=== PATIENT | female | born 1940 | race Caucasian/White ===

== ENCOUNTER 2017-04-26 11:14 | Outpatient (CLI) | payer MEDICARE ==
--- NOTE | 2017-04-26 14:12 | Ultrasound Report ---
PELVIC ULTRASOUND: 04/26/2017 CLINICAL INDICATION: Postmenopausal bleeding. COMPARISON: 01/08/2015 TECHNIQUE: Transabdominal pelvic ultrasound performed for global evaluation. Transvaginal pelvic ul trasound performed for detailed evaluation. Real-time scanning performed and static images obtained. FINDINGS: The uterus is anteverted, measuring 10.6 x 7.1 x 4.4 cm. The endometrium is thickened, me asuring 17 mm. There is a possible lower uterine segment/upper cervical polyp, measuring 1.3 x 0.8 x 0.7 cm. Multiple leiomyomas are present, with a left intramural measuring 5.0 x 3.6 x 3.5 cm, and a fundal measuring 3.2 x 3.1 x 3.0 cm. Neither ovary was confidently identified on transabdominal or transvaginal scanning. No free fluid is present. IMPRESSION: THICKENED ENDOMETRIUM. POSSIBLE SMALL POLYP. MULTIPLE LEIOMYOMAS. JOB #: [id number] EXT JOB #:
== END 2017-04-26 11:15 | disposition home or self-care (01) ==
LOC: DI 11:14
PROVIDERS: ATTEND Obstetrics & Gynecology
DX: D25.9 Leiomyoma of uterus, unspecified (principal); R93.8 Abnormal findings on diagnostic imaging of other specified body structures
CPT/HCPCS: 76830; 76856

== ENCOUNTER 2017-06-29 14:01 | Outpatient (CLI) | payer MEDICARE | END 2017-06-29 14:02 | disposition critical access hospital (66) | LOC: EMS 14:01 | PROVIDERS: ATTEND Surgery | DX: R09.89 Other specified symptoms and signs involving the circulatory and respiratory systems (principal) | CPT/HCPCS: A0425; A0427 ==

== ENCOUNTER 2017-06-29 14:33 | Inpatient (IN) | payer MEDICARE ==
[2017-06-29] MEDS ORDERED: diltiaZEM INJ 5 MG/ML VIAL IVP STA (14:58)
--- NOTE | 2017-06-29 15:02 | ED Physician Documentation ---
History of Present Illness - Stated complaint Stated Complaint: CP - Chief complaint Chief Complaint: Cardiac - History obtained from History obtained from: Patient, EMS - History of Present Illness Pain level max: 4 Pain level now: 4 Improved by: nothing Worsened by: nothing - Additonal information Additional information: Patient is a 77-year-old female who had 2-3 hours of chest pain yesterday, felt her heart racing and radiating up to the left jaw. This spontaneously resolved , but symptoms recurred today approximately 2 hours ago. Again states feels her heart beating very fast and has substernal chest tightness radiating to the left jaw. No history of cardiac disease in the past. No stents. No bypass. States that she had been told once she had a "arrhythmia", but that was when she was very young. No history of atrial fibrillation or atrial flutter that she knows of. States she took aspirin prior to arrival. Did not receive any medications with EMS. Review of Systems Ten Systems: 10 systems reviewed and negative Constitutional: denies: Fever, Chills Ears: denies: Ear pain Nose: denies: Rhinorrhea / runny nose, Congestion Throat: denies: Sore throat Respiratory: denies: Cough, Hemoptysis, Wheezing GI: denies: Abdominal Pain, Nausea, Vomiting, Diarrhea Skin: denies: Rash Musculoskeletal: denies: Neck pain, Back pain Neurologic: denies: Focal weakness, Numbness, Confused, Altered mental status, Headache PD PAST MEDICAL HISTORY - Past Medical History Cardiovascular: Hypertension, High cholesterol Respiratory: Other Endocrine/Autoimmune: None GI: None : None HEENT: None Psych: None Musculoskeletal: Osteoarthritis Derm: Rosacea - Past Surgical History Ortho: Knee replacement HEENT: Tonsil/Adenoidectomy - Present Medications Home Medications: Ambulatory Orders Medication Instructions Recorded Confirmed Amlodipine Besylate 10 mg PO DAILY 07/12/15 06/29/17 Aspirin [Aspir 81] 81 mg PO DAILY 07/12/15 06/29/17 Multivitamin [Multivitamins] 1 each PO DAILY 07/12/15 06/29/17 Pravastatin Sodium 20 mg PO DAILY 07/12/15 06/29/17 - Allergies Allergies/Adverse Reactions: Allergies Allergy/AdvReac Type Severity Reaction Status Date / Time No Known Drug Allergies Allergy Verified 06/29/17 14:45 - Social History Does the pt smoke?: No Smoking Status: Never smoker PD ED PE NORMAL - Vitals Vital signs reviewed: Yes - General General: Alert and oriented X 3, No acute distress, Well developed/nourished - HEENT HEENT: PERRL, Moist mucous membranes - Neck Neck: Supple, no meningeal sign - Cardiac Cardiac: Strong equal pulses, Other (Tachycardic) - Respiratory Respiratory: No respiratory distress, Clear bilaterally - Abdomen Abdomen: Soft, Non tender, Non distended - Derm Derm: Warm and dry - Extremities Extremities: No edema, No calf tenderness / cord - Neuro Neuro: Alert and oriented X 3 - Psych Psych: Normal mood, Normal affect Results - Vitals Vitals: Vital Signs - 24 hr 06/29/17 14:44 Temperature 99.1 C H Heart Rate 141 H Respiratory 18 Rate Blood Pressure 148/87 H O2 Saturation 95 Oxygen O2 Source Room air - EKG (time done) 1504 Rate: Rate (enter#) (139) Rhythm: Sinus tachycardia (vs ectopic) Bim: LAD QRS: Normal Ischemia: Other (rate related ST changes) Compare to prior EKG: Old EKG unavailable - Labs Labs: Laboratory Tests 06/29/17 06/29/17 06/29/17 15:00 15:00 15:00 WBC 8.2 RBC 5.58 H Hgb 15.7 Hct 46.4 MCV 83.0 MCH 28.2 MCHC 33.9 RDW 14.7 Plt Count 244 MPV 7.8 L Neut # 4.7 Lymph # 2.4 Wilkinson # 0.5 Eos # 0.5 Baso # 0.1 Absolute Nucleated RBC 0.00 Nucleated RBC % 0.0 Sodium 139 Potassium 2.8 L Chloride 100 L Carbon Dioxide 27 Anion Gap 12.0 BUN 13 Creatinine 0.6 Estimated GFR (MDRD) 97 Glucose 180 H Calcium 9.6 Phosphorus Magnesium Total Bilirubin 0.5 AST 36 ALT 27 Alkaline Phosphatase 31 L Troponin I < 0.04 Total Protein 8.1 Albumin 4.1 Globulin 4.0 Albumin/Globulin Ratio 1.0 Lipase 32 TSH 06/29/17 06/29/17 15:00 15:00 WBC RBC Hgb Hct MCV MCH MCHC RDW Plt Count MPV Neut # Lymph # Wilkinson # Eos # Baso # Absolute Nucleated RBC Nucleated RBC % Sodium Potassium Chloride Carbon Dioxide Anion Gap BUN Creatinine Estimated GFR (MDRD) Glucose Calcium Phosphorus 2.7 Magnesium 2.0 Total Bilirubin AST ALT Alkaline Phosphatase Troponin I Total Protein Albumin Globulin Albumin/Globulin Ratio Lipase TSH 2.67 - Rads (name of study) Chest x-ray Radiology: Prelim report reviewed, EMP read contemporaneously, See rad report ( No acute intrathoracic plain film abnormality. ) PD MEDICAL DECISION MAKING - ED course Complexity details: reviewed results, re-evaluated patient, considered differential, d/w patient, d/w [facility] ebs consultant ED course: Patient is a 77-year-old female who presents to the emergency department for appears to be new onset atrial fibrillation with rapid ventricular response. Initially difficult to tell if it was sinus tach versus atrial flutter versus atrial fibrillation her EKG as it was very regular, given diltiazem, rate slowed and was able to be seen that this is clearly atrial fibrillation. Placed on a diltiazem drip for continued rapid ventricular response. Feels much better and chest pain resolved with rate control. We will have her admitted with the hospitalist for further evaluation and care. As I do not know her baseline status if she is sinus or atrial fibrillation without rapid ventricular response, did not feel comfortable cardioverting her electrically or pharmacologically at this time. Discussed with Dr. Da Silva, who accepts. This document was made in part using voice recognition software. While efforts are made to proofread this document, sound alike and grammatical errors may occur. Departure - Departure Disposition: 66 [facility] DC/Xfer Clinical Impression: Atrial fibrillation with rapid ventricular response Condition: Stable Discharge Date/Time: 06/29/17 17:23
[2017-06-29 15:06] LABS: BASOPHILS # (AUTO) 0.1 10^3/uL (0.0-0.1); BASOPHILS % (AUTO) 1.1 %; EOSINOPHILS # (AUTO) 0.5 10^3/uL (0.0-0.7); EOSINOPHILS % (AUTO) 5.7 %; HCT - HEMATOCRIT 46.4 % (37.0-47.0); HGB - HEMOGLOBIN 15.7 g/dL (12.0-16.0); LYMPHOCYTES # (AUTO) 2.4 10^3/uL (1.5-3.5); LYMPHOCYTES % (AUTO) 29.6 %; MEAN CORPUSCULAR HEMOGLOBIN 28.2 pg (27.0-31.0); MEAN CORPUSCULAR HGB CONC 33.9 g/dL (32.0-36.0); MEAN PLATELET VOLUME 7.8 fL (7.9-10.8); MONOCYTES # (AUTO) 0.5 10^3/uL (0.0-1.0); MONOCYTES % (AUTO) 6.2 %; NEUTROPHILS # (AUTO) 4.7 10^3/uL (1.5-6.6); NEUTROPHILS % (AUTO) 57.4 %; RED BLOOD COUNT 5.58 10^6/uL (4.20-5.40); RED CELL DISTRIBUTION WIDTH 14.7 % (12.0-15.0); UNCORRECTED WHITE BLOOD COUNT 8.2 x10^3/uL; WHITE BLOOD COUNT 8.2 x10^3/uL (4.8-10.8)
[2017-06-29] MEDS ORDERED: diltiaZEM INJ 5 MG/ML VIAL ONE (15:10)
[2017-06-29 15:27] LABS: BILIRUBIN,TOTAL 0.5 mg/dL (0.2-1.0); CALCIUM 9.6 mg/dL (8.5-10.3); CREATININE 0.6 mg/dL (0.4-1.0); POTASSIUM 2.8 mmol/L (3.5-5.0); TOTAL PROTEIN 8.1 g/dL (6.7-8.2)
--- NOTE | 2017-06-29 15:29 | XRAY Preliminary Report ---
Exam: XR Chest 1 View IMPRESSION: No acute intrathoracic plain film abnormality. [facility] SITE ID: [id number]
--- NOTE | 2017-06-29 15:32 | XRAY Report ---
EXAM: CHEST RADIOGRAPHY EXAM DATE: 06/29/2017 03:16 PM. CLINICAL HISTORY: Chest pain. COMPARISON: 11/18/2009. TECHNIQUE: 1 view. FINDINGS: Lungs/Pleura: No focal opacities evident. No pleural effusion. No pneumothorax. Mediastinum: Mild thoracic aortic tortuosity. Normal heart size. Other: None. IMPRESSION: No acute intrathoracic plain film abnormality. [facility] Referring Provider Line: [phone] SITE ID: [id number]
[2017-06-29] MEDS ORDERED: POTASSIUM BICARB 25 MEQ TABLET PO STA (15:45)
[2017-06-29 16:01] LABS: PHOSPHORUS 2.7 mg/dL (2.5-4.6)
[2017-06-29] MEDS: diltiaZEM INJ 125 MG in DEXTROSE 5% 100 ML IV STA ×2 (16:04→18:58)
[2017-06-29] MEDS ORDERED: ONDANSETRON 4 MG/2 ML VIAL IVP PRN (16:44)
[2017-06-29] MEDS ORDERED: SODIUM CHLORIDE FLUSH 0.9% 10 ML SYRINGE IVP PRN (16:44)
[2017-06-29] MEDS ORDERED: PROCHLORPERAZINE 10 MG/2 ML VIAL IVP PRN (16:44)
[2017-06-29] MEDS ORDERED: ZOLPIDEM 5 MG TABLET PO PRN (16:44)
[2017-06-29] MEDS ORDERED: ACETAMINOPHEN 325 MG TABLET PO PRN (16:44)
[2017-06-29] MEDS ORDERED: POTASSIUM BICARB 25 MEQ TABLET PO ONE (16:47)
[2017-06-29] MEDS ORDERED: diltiaZEM INJ 125 MG in DEXTROSE 5% 100 ML IV SCH (17:00)
--- NOTE | 2017-06-29 17:19 | HISTORY & PHYSICAL EXAMINATION ---
Chief Complaint - Chief Complaint Chief Complaint: Palpitations History of Present Illness - Admitted From Admitted From:: Emergency department - History Obtained From Records Reviewed: Yes History obtained from: Patient Exam Limitations: None - History of Present Illness HPI Comment/Other: Patient is a 77-year-old female with a past medical history significant for obesity, hyperlipidemia, hypertension and osteoarthritis status post right knee replacement who presented to the emergency department with a chief complaint of palpitations. The patient states that she was in her normal state of health until yesterday afternoon when she felt as though her heart was racing and pounding against her chest. She states at that time she also felt some discomfort in her right jaw. She states that she tried to relax and take deep breaths and not do anything for the next several hours and she states eventually , gradually the symptoms resolved. The patient states that prior to this she has never had symptoms like this before. The patient states that today at 12: 30 PM the same symptoms returned while she was standing in her home. She states again she felt palpitations in her chest and she could feel her heart racing. She states she also began having the same discomfort in her right jaw. She states that this time she decided to come into the emergency department. The patient otherwise denies having had any recent fevers or chills. She denies any associated shortness of air, orthopnea, PND, increased lower extremity swelling. She also denies any recent illnesses or changes in her medications. She denies any chest pain. She denies any abdominal pain, nausea , vomiting or recent diarrhea. The patient states that she has had normal appetite and denies any recent unintentional weight loss. The patient denies any thinning of her hair, drying of her skin or recent feeling of fatigue. The patient denies any headaches, blurred vision, runny nose, sore throat, nasal congestion. The patient denies any urinary urgency, urinary frequency or dysuria. The patient denies any joint swelling, she does admit to pain in her right hip but denies any focal neurologic deficits. On presentation to the emergency department the patient was tachycardic with a heart rate of 141. The patient's initial EKG revealed that she was in A. fib with RVR. The patient was given 20 mg of IV diltiazem with which the heart rate did slow down to the 110-115 range however within minutes her heart rate went back into the 140s and remained persistently in the 140s. The patient was placed on a diltiazem drip. Despite being on 5 mg of diltiazem drip her heart rate remained in the 140s. The patient's lab work revealed a negative troponin and was only remarkable for a low potassium of 2.8. The patient did undergo a chest x-ray which revealed no acute intrathoracic plain film abnormality. The patient was admitted to the intensive care unit on a diltiazem drip for treatment of a new onset atrial fibrillation with rapid ventricular rate. History - Past Medical History Cardiovascular: reports: Hypertension, High cholesterol, Other (Obesity) Respiratory: reports: Other Endocrine/Autoimmune: reports: None GI: reports: None : reports: None HEENT: reports: None Psych: reports: None Musculoskeletal: reports: Osteoarthritis Derm: reports: Rosacea MRSA Hx?: No - Past Surgical History Ortho: reports: Knee replacement HEENT: reports: Tonsil/Adenoidectomy - Family & Social History Family History: Mother: (Both parents lived into their 90s), Alzheimer' s Disease, CAD, Father: , Brother: Alive and Well Living arrangement: At home Living Situation: Alone Social History Notes: The patient lives in [place], [place]. 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 The patient is recently . She has 1 biological son who lives out of state. She does have 1 stepdaughter who also lives on [facility]. The patient lived in [place] prior to moving to [place] [facility] 25 years ago. The patient has never smoked, she rarely drinks alcohol and she denies any illicit drug use. - Substance History Use: Uses substance without health or social issues: NONE Abuse: Recurrent use of substance despite neg consequences: NONE Dependence: Experiences withdrawal or developed tolerances: NONE - POLST Patient has POLST: No POLST Status: Full Code Meds/Allgy - Home Medications Home Medications: Ambulatory Orders Medication Instructions Recorded Confirmed Amlodipine Besylate 10 mg PO DAILY 07/12/15 07/14/15 Aspirin [Aspir 81] 81 mg PO DAILY 07/12/15 06/29/17 Multivitamin [Multivitamins] 1 each PO DAILY 07/12/15 07/13/15 Pravastatin Sodium 20 mg PO DAILY 07/12/15 07/13/15 - Allergies Allergies/Adverse Reactions: Allergies Allergy/AdvReac Type Severity Reaction Status Date / Time No Known Drug Allergies Allergy Verified 06/29/17 14:45 Review of Systems - Other Findings Other Findings: A comprehensive review of systems was performed the pertinent positives and negatives are stated above in the HPI and the remainder of the review of systems is negative. Exam - Vital Signs Reviewed Vital Signs: Yes Vital Signs: Vital Signs x48h Temp Pulse Resp BP Pulse Ox 06/29/17 14:44 99.1 C H 141 H 18 148/87 H 95 - Physical Exam General Appearance: positive: No acute distress, Alert, Other (Obese) Eyes Bilateral: positive: Normal inspection, PERRL, EOMI, No lid inflammation, Conjunctivae nml, No scleral icterus ENT: positive: ENT inspection nml, Pharynx nml, No signs of dehydration. negative: Purulent nasal drainage, Pharyngeal erythema, Oral lesions Neck: positive: Nml inspection, Thyroid nml, No JVD, Trachea midline. negative : Thyromegaly, Lymphadenopathy (R), Lymphadenopathy (L), Stiff neck, Carotid bruit, Tracheal deviation Respiratory: positive: Chest non-tender, No respiratory distress, Breath sounds nml. negative: Wheezes, Rales, Rhonchi Cardiovascular: positive: No murmur, No gallop, Irregularly irregular, Tachycardia Peripheral Pulses: positive: 2+ Abdomen: positive: Non-tender, No organomegaly, Nml bowel sounds, No distention. negative: Guarding, Rebound, Hepatomegaly Back: positive: Nml inspection. negative: CVA tenderness (R), CVA tenderness (L ) Skin: positive: Color nml, No rash, Warm. negative: Cyanosis, Diaphoresis, Pallor Extremities: positive: Non-tender, Full ROM, Nml appearance, No pedal edema. negative: Joint swelling Neurologic/Psychiatric: positive: Oriented x3, CN's nml (2-12), Motor nml, Sensation nml, Mood/affect nml Conclusion/Plan - Problem List (1) Atrial fibrillation with rapid ventricular response Conclusion/Plan: Patient presented with palpitations starting yesterday which initially resolved after a few hours. She had another episode today with right jaw pain and feeling as though her heart was racing. On presentation to the ER patient was in A. fib with RVR with rate in the 140s. Despite treatment with 20 mg of IV diltiazem patient's heart rate only momentarily improved and then shot back up into the 140s. Patient was placed on a diltiazem drip and admitted to the intensive care unit. Plan: Titrate diltiazem drip for heart rate less than 110 Give p.o. diltiazem 30 mg p.o. every 6 hours Check TSH Echocardiogram Telemetry monitoring [id number] score is 3 therefore patient should be on anticoagulation Start Coumadin 5 mg daily Troponin every 6 hours 3 (2) Hypokalemia Conclusion/Plan: On presentation patient's potassium is 2.8. Patient has not had any recent vomiting or diarrhea. Patient is not on any medications that would cause hypokalemia. Patient's potassium was last checked in November 2013 at that time it was low but only slightly low at 3.4. Plan: Replace potassium IV and p.o. Monitor potassium Electrolyte protocol Workup hypokalemia (3) Hypertension Conclusion/Plan: Patient has history of hypertension and is on amlodipine at home. On presentation patient's blood pressure slightly elevated. Plan: We will hold the patient's amlodipine as we are giving her IV and p.o. diltiazem for her A. fib with RVR. If the patient does become hypotensive we will need to start her on diltiazem or amiodarone. Monitor BP Qualifiers: Hypertension type: essential hypertension Qualified Code(s): I10 - Essential (primary) hypertension (4) Hyperlipidemia Conclusion/Plan: Continue patient on statin Check lipid profile in the a.m. - Lab Results Lab results reviewed: Yes Fish Bones: 06/29/17 15:00 06/29/17 15:00 Other Lab Results: Laboratory Results WBC 8.2 x10^3/uL (4.8-10.8) 06/29/17 15:00 RBC 5.58 10^6/uL (4.20-5.40) H 06/29/17 15:00 Hgb 15.7 g/dL (12.0-16.0) 06/29/17 15:00 Hct 46.4 % (37.0-47.0) 06/29/17 15:00 MCV 83.0 fL (81.0-99.0) 06/29/17 15:00 MCH 28.2 pg (27.0-31.0) 06/29/17 15:00 MCHC 33.9 g/dL (32.0-36.0) 06/29/17 15:00 RDW 14.7 % (12.0-15.0) 06/29/17 15:00 Plt Count 244 10^3/uL (130-450) 06/29/17 15:00 MPV 7.8 fL (7.9-10.8) L 06/29/17 15:00 Neut # 4.7 10^3/uL (1.5-6.6) 06/29/17 15:00 Lymph # 2.4 10^3/uL (1.5-3.5) 06/29/17 15:00 [place] # 0.5 10^3/uL (0.0-1.0) 06/29/17 15:00 Eos # 0.5 10^3/uL (0.0-0.7) 06/29/17 15:00 Baso # 0.1 10^3/uL (0.0-0.1) 06/29/17 15:00 Absolute Nucleated RBC 0.00 x10^3/uL 06/29/17 15:00 Nucleated RBC % 0.0 /100WBC 06/29/17 15:00 Sodium 139 mmol/L (135-145) 06/29/17 15:00 Potassium 2.8 mmol/L (3.5-5.0) L 06/29/17 15:00 Chloride 100 mmol/L (101-111) L 06/29/17 15:00 Carbon Dioxide 27 mmol/L (21-32) 06/29/17 15:00 Anion Gap 12.0 (6-13) 06/29/17 15:00 BUN 13 mg/dL (6-20) 06/29/17 15:00 Creatinine 0.6 mg/dL (0.4-1.0) 06/29/17 15:00 Estimated GFR (MDRD) 97 (>89) 06/29/17 15:00 Glucose 180 mg/dL (70-100) H 06/29/17 15:00 Calcium 9.6 mg/dL (8.5-10.3) 06/29/17 15:00 Phosphorus 2.7 mg/dL (2.5-4.6) 06/29/17 15:00 Magnesium 2.0 mg/dL (1.7-2.8) 06/29/17 15:00 Total Bilirubin 0.5 mg/dL (0.2-1.0) 06/29/17 15:00 AST 36 IU/L (10-42) 06/29/17 15:00 ALT 27 IU/L (10-60) 06/29/17 15:00 Alkaline Phosphatase 31 IU/L (42-121) L 06/29/17 15:00 Troponin I < 0.04 ng/mL (<0.49) 06/29/17 15:00 Total Protein 8.1 g/dL (6.7-8.2) 06/29/17 15:00 Albumin 4.1 g/dL (3.2-5.5) 06/29/17 15:00 Globulin 4.0 g/dL (2.1-4.2) 06/29/17 15:00 Albumin/Globulin Ratio 1.0 (1.0-2.2) 06/29/17 15:00 Lipase 32 U/L (22-51) 06/29/17 15:00 TSH 2.67 uIU/mL (0.34-5.60) 06/29/17 15:00 - Diagnostic Imaging Results Diagnostic Imaging Results: positive: Final report reviewed Diagnostic Imaging Results Comments: Chest x-ray Impression: No acute intrathoracic plain film abnormality. - EKG Results EKG Interpreted Independently: Yes EKG Findings: Atrial fibrillation with rapid ventricular rate. ST depressions in inferior leads. Mild ST elevations in the anterior leads. Issues/Core Measures - Anticipated LOS Anticipated Stay Length: 2 or more midnights - DVT/VTE - Prophylaxis VTE/DVT Prophylaxis med ordered at admit?: Yes
[2017-06-29 18:06] LABS: BILIRUBIN,URINE NEGATIVE (NEGATIVE); PH,URINE 6.5 PH (5.0-7.5)
[2017-06-29 18:10] LABS: UA w/ MICROSCOPIC CHARGE YES
[2017-06-29] MEDS: NS W/20 MEQ KCL 1,000 ML IV SCH (18:12)
[2017-06-29] MEDS: diltiaZEM 30 MG TABLET PO SCH (18:18)
[2017-06-29 18:57] LABS: UR CULTURE IF IND NOT INDICATED; WBC,URINE 0-3 /HPF (0-5)
[2017-06-29] MEDS: ATORVASTATIN 10 MG TABLET PO SCH (21:37)
[2017-06-29] MEDS: SODIUM CHLORIDE FLUSH 0.9% 10 ML SYRINGE IVP SCH (22:52)
[2017-06-30 03:51] LABS: BASOPHILS # (AUTO) 0.1 10^3/uL (0.0-0.1); BASOPHILS % (AUTO) 1.2 %; EOSINOPHILS # (AUTO) 0.5 10^3/uL (0.0-0.7); EOSINOPHILS % (AUTO) 6.1 %; HCT - HEMATOCRIT 40.1 % (37.0-47.0); HGB - HEMOGLOBIN 13.6 g/dL (12.0-16.0); LYMPHOCYTES # (AUTO) 2.2 10^3/uL (1.5-3.5); LYMPHOCYTES % (AUTO) 29.5 %; MEAN CORPUSCULAR HEMOGLOBIN 28.2 pg (27.0-31.0); MEAN CORPUSCULAR VOLUME 82.9 fL (81.0-99.0); MEAN PLATELET VOLUME 7.6 fL (7.9-10.8); MONOCYTES # (AUTO) 0.6 10^3/uL (0.0-1.0); MONOCYTES % (AUTO) 7.5 %; NEUTROPHILS # (AUTO) 4.1 10^3/uL (1.5-6.6); NEUTROPHILS % (AUTO) 55.7 %; NUCLEATED RED BLOOD CELLS AUTO 0.1 /100WBC; RED BLOOD COUNT 4.83 10^6/uL (4.20-5.40); RED CELL DISTRIBUTION WIDTH 14.2 % (12.0-15.0); UNCORRECTED WHITE BLOOD COUNT 7.3 x10^3/uL; WHITE BLOOD COUNT 7.3 x10^3/uL (4.8-10.8)
[2017-06-30] MEDS: NS W/20 MEQ KCL 1,000 ML IV SCH ×3 (03:53→12:16)
[2017-06-30 03:58] LABS: INR 1.2 (0.8-1.2); PT - PROTHROMBIN TIME 13.2 secs (9.9-12.6)
[2017-06-30 04:09] LABS: BUN - BLOOD UREA NITROGEN 11 mg/dL (6-20); CALCIUM 8.5 mg/dL (8.5-10.3); CARBON DIOXIDE - CO2 27 mmol/L (21-32); CHLORIDE 104 mmol/L (101-111); CHOL/HDL RATIO 3.6 (<4.4); CHOLESTEROL 162 mg/dL; CREATININE 0.5 mg/dL (0.4-1.0); GFR - MDRD 120 (>89); GLUCOSE 142 mg/dL (70-100); HDL CHOLESTEROL 45 mg/dL; LDL/HDL RATIO 2.4 (<4.4); MAGNESIUM 1.8 mg/dL (1.7-2.8); PHOSPHORUS 3.5 mg/dL (2.5-4.6); POTASSIUM 3.2 mmol/L (3.5-5.0); SODIUM 139 mmol/L (135-145); TOTAL PROTEIN 6.7 g/dL (6.7-8.2); TRIGLYCERIDES 53 mg/dL; VLDL CHOLESTEROL 11 mg/dL
[2017-06-30] MEDS ORDERED: POTASSIUM CHLORIDE 20 MEQ TABLET PO SCH (06:07)
[2017-06-30] MEDS: diltiaZEM 30 MG TABLET PO SCH ×4 (07:44→20:36)
[2017-06-30] MEDS ORDERED: ENOXAPARIN 40 MG/0.4 ML SYRINGE SUBQ SCH (09:00)
[2017-06-30] MEDS: ASPIRIN EC 81 MG TABLET PO SCH (09:11)
[2017-06-30] MEDS: MULTIVITAMIN TABLET PO SCH (09:11)
[2017-06-30] MEDS: FAMOTIDINE 20 MG TABLET PO SCH (09:11)
[2017-06-30] MEDS: SODIUM CHLORIDE FLUSH 0.9% 10 ML SYRINGE IVP SCH ×3 (13:13→20:36)
[2017-06-30] MEDS ORDERED: WARFARIN 5 MG TABLET PO SCH (14:00)
--- NOTE | 2017-06-30 15:36 | PROVIDER PROGRESS NOTE ---
Assessment/Plan - Problem List (1) Atrial fibrillation with rapid ventricular response Assessment/Plan: Pt converted to sinus rhythm overnight and the Cardizem drip was stopped. HR 50-60 in a Wandering atrial pacemaker on EKG, two doses of po Cardizem 30 mg were not given at midnite and 6 am (?due to adilia). Will begin scheduled Cardizem po and assess HR with activity. Pt will be moved out of ICU, to ambulate. Amlodipoine will be cancelled, discussed with Pt and family memeber at bedside. Will begin Coumadin and adjust Lovenox dose to therapeutic til INR on Coumadin is therapeutic, alternatively I discussed Xarelto for use as anticoagulant. Pt will check with her [employer] plan if the copay will be affordable. Pt has R/O for [place], has had no further jaw apin (possible angina), and thyroid function is normal. She will need an outpt W/U for CAD with stress testing and a W/U for sleep apnea as the cause of her new onset Afib (2) Hypertension Qualifiers: Hypertension type: essential hypertension Qualified Code(s): I10 - Essential (primary) hypertension Assessment/Plan: Controlled on present meds and management (3) Hypokalemia Assessment/Plan: Improved with replacement. Continue to monitor. - Current Meds Current Meds: Current Medications Generic Name Dose Route Start Last Admin Trade Name Freq PRN Reason Stop Dose Admin Aspirin 81 mg 06/30/17 09:00 06/30/17 09:11 Ecotrin PO 81 mg DAILY MENDEL Administration Atorvastatin Calcium 20 mg 06/29/17 21:00 06/29/17 21:37 Lipitor PO 20 mg QPM MENDEL Administration Diltiazem HCl 30 mg 06/30/17 14:00 06/30/17 13:23 Cardizem PO 30 mg Q8HR MENDEL Administration Famotidine 20 mg 06/30/17 09:00 06/30/17 09:11 Pepcid PO 20 mg DAILY MENDEL Administration Multivitamins 1 tab 06/30/17 08:00 06/30/17 09:11 Theragran PO 1 tab DAILYWM MENDEL Administration Sodium Chloride 10 ml 06/29/17 22:00 06/30/17 13:21 Normal Saline Flush 0.9% IVP 10 ml Q8HR MENDEL Administration Sodium Chloride 10 ml 06/29/17 16:44 06/30/17 11:47 Normal Saline Flush 0.9% IVP 10 ml PRN PRN Administration NEEDED PER PROVIDER ORDERS Warfarin Sodium 5 mg 06/30/17 14:00 06/30/17 13:23 Coumadin PO 5 mg QDWARFARIN MENDEL Administration - Lab Result Fish Bone Diagrams: 06/30/17 03:45 06/30/17 03:45 - Additional Planning My Orders: My Active Orders 06/30/17 14:00 diltiaZEM [Cardizem] 30 mg PO Q8HR 06/30/17 21:00 Enoxaparin [Lovenox] 40 mg SUBQ BID 07/01/17 05:00 BMP - BASIC METABOLIC PANEL [CHEM] DAILYLAB MAGNESIUM [CHEM] DAILYLAB Objective Vital Signs: Vital Signs - 24 hr 06/29/17 06/29/17 06/29/17 17:25 18:00 18:18 Temperature 37.2 C Heart Rate [ 144 H 70 Apical] Heart Rate [ Brachial] Heart Rate [ Monitoring electrodes] Respiratory 14 22 Rate Blood Pressure 137/85 H Blood Pressure 156/85 H 137/85 H [Right Brachial artery] O2 Saturation 96 97 06/29/17 06/29/17 06/29/17 19:04 21:31 22:20 Temperature 37.1 C Heart Rate [ 65 60 56 L Apical] Heart Rate [ Brachial] Heart Rate [ Monitoring electrodes] Respiratory 18 16 14 Rate Blood Pressure Blood Pressure 130/58 L 128/64 124/61 [Right Brachial artery] O2 Saturation 98 94 94 06/29/17 06/30/17 06/30/17 23:00 00:00 01:00 Temperature 37.0 C Heart Rate [ 58 L 74 66 Apical] Heart Rate [ Brachial] Heart Rate [ Monitoring electrodes] Respiratory 19 18 18 Rate Blood Pressure Blood Pressure 132/64 H 139/68 H 143/67 H [Right Brachial artery] O2 Saturation 94 96 94 06/30/17 06/30/17 06/30/17 02:00 03:00 04:00 Temperature Heart Rate [ 72 61 60 Apical] Heart Rate [ Brachial] Heart Rate [ Monitoring electrodes] Respiratory 23 18 17 Rate Blood Pressure Blood Pressure 149/85 H 132/74 H 134/64 H [Right Brachial artery] O2 Saturation 95 89 L 94 06/30/17 06/30/17 06/30/17 05:00 06:00 07:00 Temperature 36.8 C Heart Rate [ 58 L 64 59 L Apical] Heart Rate [ Brachial] Heart Rate [ Monitoring electrodes] Respiratory 22 15 19 Rate Blood Pressure Blood Pressure 134/65 H 131/76 H 137/75 H [Right Brachial artery] O2 Saturation 92 96 89 L 06/30/17 06/30/17 06/30/17 07:59 09:00 10:00 Temperature 37.1 C Heart Rate [ 58 L 65 67 Apical] Heart Rate [ Brachial] Heart Rate [ Monitoring electrodes] Respiratory 18 24 20 Rate Blood Pressure Blood Pressure 135/68 H 129/92 H 122/65 [Right Brachial artery] O2 Saturation 95 97 96 06/30/17 06/30/17 06/30/17 11:00 11:50 13:23 Temperature 37.3 C Heart Rate [ 63 Apical] Heart Rate [ Brachial] Heart Rate [ 61 Monitoring electrodes] Respiratory 19 19 Rate Blood Pressure 136/68 H Blood Pressure 130/74 144/80 H [Right Brachial artery] O2 Saturation 96 96 06/30/17 06/30/17 13:26 15:19 Temperature 36.4 C L Heart Rate [ Apical] Heart Rate [ 68 Brachial] Heart Rate [ 68 Monitoring electrodes] Respiratory 20 Rate Blood Pressure Blood Pressure 138/68 H 111/60 [Right Brachial artery] O2 Saturation 97 Oxygen O2 Source Room air I&O (Last 24 Hrs): Intake and Output Totals x24h 06/28/17 06/29/17 06/30/17 23:59 23:59 23:59 Intake Total 526.492 2951.333 Output Total 800 450 Balance 800.870 6232.333 - Results Results: Laboratory Results WBC 7.3 x10^3/uL (4.8-10.8) 06/30/17 03:45 RBC 4.83 10^6/uL (4.20-5.40) 06/30/17 03:45 Hgb 13.6 g/dL (12.0-16.0) 06/30/17 03:45 Hct 40.1 % (37.0-47.0) 06/30/17 03:45 MCV 82.9 fL (81.0-99.0) 06/30/17 03:45 MCH 28.2 pg (27.0-31.0) 06/30/17 03:45 MCHC 34.0 g/dL (32.0-36.0) 06/30/17 03:45 RDW 14.2 % (12.0-15.0) 06/30/17 03:45 Plt Count 231 10^3/uL (130-450) 06/30/17 03:45 MPV 7.6 fL (7.9-10.8) L 06/30/17 03:45 Neut # 4.1 10^3/uL (1.5-6.6) 06/30/17 03:45 Lymph # 2.2 10^3/uL (1.5-3.5) 06/30/17 03:45 [place] # 0.6 10^3/uL (0.0-1.0) 06/30/17 03:45 Eos # 0.5 10^3/uL (0.0-0.7) 06/30/17 03:45 Baso # 0.1 10^3/uL (0.0-0.1) 06/30/17 03:45 Absolute Nucleated RBC 0.00 x10^3/uL 06/30/17 03:45 Nucleated RBC % 0.1 /100WBC 06/30/17 03:45 PT 13.2 secs (9.9-12.6) H 06/30/17 03:45 INR 1.2 (0.8-1.2) 06/30/17 03:45 Sodium 139 mmol/L (135-145) 06/30/17 03:45 Potassium 3.2 mmol/L (3.5-5.0) L 06/30/17 03:45 Chloride 104 mmol/L (101-111) 06/30/17 03:45 Carbon Dioxide 27 mmol/L (21-32) 06/30/17 03:45 Anion Gap 8.0 (6-13) 06/30/17 03:45 BUN 11 mg/dL (6-20) 06/30/17 03:45 Creatinine 0.5 mg/dL (0.4-1.0) 06/30/17 03:45 Estimated GFR (MDRD) 120 (>89) 06/30/17 03:45 Glucose 142 mg/dL (70-100) H 06/30/17 03:45 Calcium 8.5 mg/dL (8.5-10.3) 06/30/17 03:45 Phosphorus 3.5 mg/dL (2.5-4.6) 06/30/17 03:45 Magnesium 1.8 mg/dL (1.7-2.8) 06/30/17 03:45 Total Bilirubin 1.0 mg/dL (0.2-1.0) 06/30/17 03:45 AST 26 IU/L (10-42) 06/30/17 03:45 ALT 20 IU/L (10-60) 06/30/17 03:45 Alkaline Phosphatase 26 IU/L (42-121) L 06/30/17 03:45 Troponin I < 0.04 ng/mL (<0.49) 06/30/17 03:45 B-Natriuretic Peptide 164 pg/mL (5-100) H 06/30/17 03:45 Total Protein 6.7 g/dL (6.7-8.2) 06/30/17 03:45 Albumin 3.4 g/dL (3.2-5.5) 06/30/17 03:45 Globulin 3.3 g/dL (2.1-4.2) 06/30/17 03:45 Albumin/Globulin Ratio 1.0 (1.0-2.2) 06/30/17 03:45 Triglycerides 53 mg/dL (-149) 06/30/17 03:45 Cholesterol 162 mg/dL (-199) 06/30/17 03:45 LDL Cholesterol, Calc 106 mg/dL (-129) 06/30/17 03:45 VLDL Cholesterol 11 mg/dL 06/30/17 03:45 HDL Cholesterol 45 mg/dL (60-) L 06/30/17 03:45 LDL/HDL Ratio 2.4 (<4.4) 06/30/17 03:45 Cholesterol/HDL Ratio 3.6 (<4.4) 06/30/17 03:45 Lipase 32 U/L (22-51) 06/29/17 15:00 TSH 2.67 uIU/mL (0.34-5.60) 06/29/17 15:00 Urine Color YELLOW 06/29/17 17:40 Urine Clarity CLEAR (CLEAR) 06/29/17 17:40 Urine pH 6.5 PH (5.0-7.5) 06/29/17 17:40 Ur Specific [place] 1.010 (1.002-1.030) 06/29/17 17:40 Urine Protein NEGATIVE mg/dL (NEGATIVE) 06/29/17 17:40 Urine Glucose (UA) NEGATIVE mg/dL (NEGATIVE) 06/29/17 17:40 Urine Ketones NEGATIVE mg/dL (NEGATIVE) 06/29/17 17:40 Urine Occult Blood SMALL (NEGATIVE) H 06/29/17 17:40 Urine Nitrite NEGATIVE (NEGATIVE) 06/29/17 17:40 Urine Bilirubin NEGATIVE (NEGATIVE) 06/29/17 17:40 Urine Urobilinogen 0.2 (NORMAL) E.U./dL (NORMAL) 06/29/17 17:40 Ur Leukocyte Esterase NEGATIVE (NEGATIVE) 06/29/17 17:40 Urine RBC 0-5 /HPF (0-5) 06/29/17 17:40 Urine WBC 0-3 /HPF (0-5) 06/29/17 17:40 Ur Squamous Epith Cells RARE Squamous (<= Few) 06/29/17 17:40 Urine Bacteria None Seen /HPF (None Seen) 06/29/17 17:40 Ur Microscopic Review INDICATED 06/29/17 17:40 Urine Culture Comments NOT INDICATED 06/29/17 17:40 - Procedures Procedures: Procedures EXTRACTION OF ENDOMETRIUM, ENDO (07/14/15)
[2017-06-30] MEDS: ENOXAPARIN 40 MG/0.4 ML SYRINGE SUBQ SCH (20:34)
[2017-06-30] MEDS: ATORVASTATIN 10 MG TABLET PO SCH (20:34)
[2017-07-01 05:19] LABS: CALCIUM 9.2 mg/dL (8.5-10.3); CREATININE 0.6 mg/dL (0.4-1.0); MAGNESIUM 1.9 mg/dL (1.7-2.8); POTASSIUM 3.2 mmol/L (3.5-5.0)
[2017-07-01 05:29] LABS: INR 1.1 (0.8-1.2); PT - PROTHROMBIN TIME 12.7 secs (9.9-12.6)
[2017-07-01] MEDS: diltiaZEM 30 MG TABLET PO SCH (06:22)
[2017-07-01] MEDS: SODIUM CHLORIDE FLUSH 0.9% 10 ML SYRINGE IVP SCH ×2 (06:23→10:14)
[2017-07-01] MEDS: ASPIRIN EC 81 MG TABLET PO SCH (08:29)
[2017-07-01] MEDS: FAMOTIDINE 20 MG TABLET PO SCH (08:29)
[2017-07-01] MEDS: MULTIVITAMIN TABLET PO SCH (08:29)
[2017-07-01] MEDS: ENOXAPARIN 40 MG/0.4 ML SYRINGE SUBQ SCH (08:29)
[2017-07-01] MEDS ORDERED: POTASSIUM CHLORIDE 20 MEQ TABLET PO SCH (10:00)
[2017-07-01] MEDS: POTASSIUM CHLOR 10 MEQ/100 ML 10 MEQ/100 ML BAG IV SCH ×2 (10:09→13:29)
--- NOTE | 2017-07-01 12:54 | Discharge Plan ---
Discharge Plan Disposition: Home, Self Care Condition: Fair Prescriptions: Dabigatran [Pradaxa] 150 mg PO BID #60 capsule diltiaZEM CD [Cardizem Cd] 120 mg PO DAILY #30 capsule Potassium Chloride [K-Dur] 20 meq PO DAILYWM #30 tablet Diet: Cardiac Activity Restrictions: No Restrictions Shower Restrictions: No Driving Restrictions: No Instruction Topics: Pulse Taking, Stroke Prevent Live W Atrial Fib, Atrial Fibrillation Additional Instructions or Follow Up instructions: See your primary care provider within a week to get a refferal to a Water Quality Assistant for outpatient stress testing and Afib management Stop the Amlodipine. Start new Cardizem and new Pradaxa. also new Potassium pill. All other medications will remain unchanged. No Smoking: If you smoke, Please STOP! Call for help.
[2017-07-01] MEDS ORDERED: DABIGATRAN 75 MG CAPSULE PO SCH (18:00)
[2017-07-01 18:35] VITALS: BP 146/70
--- NOTE | 2017-07-02 03:37 | DISCHARGE SUMMARY ---
DATE OF ADMISSION: 06/29/2017 DATE OF DISCHARGE: 07/01/2017 HOSPITAL COURSE: This is a 77-year-old white female with a history of obesity, hypertension, arthritis with prior right knee replacement. The patient presented to the emergency room with 1 day of palpitations and discomfort in the right jaw. She denied any overt CHF symptoms or any chest pain. She was found to be in new onset rapid atrial fibrillation in the ER. With rate control , her jaw pain diminished. She was admitted for management of persistent atrial fibrillation with rapid ventricular rate of new onset. HOSPITAL COURSE AND DISCHARGE DIAGNOSES 1. New onset atrial fibrillation. The patient received a bolus of Cardizem and then was placed on IV Cardizem drip, and overnight she converted to normal sinus rhythm with rates in the 50s. She was switched from IV Cardizem drip to p.o. Cardizem 30 mg q.8 hours. She was moved from the intensive care unit after the diltiazem drip was discontinued and was assessed with activity. Walking in the hallway did not cause recurrence of atrial fibrillation and did not raise her heart rate excessively. The patient ruled out for an TX by troponins. The patient had an echo, which showed normal LV contractility, LVH present and PA pressure upper limit of normal at 37 mmHg. There was no significant valvular disease. A repeat EKG after converting to sinus rhythm showed left atrial enlargement, wandering atrial pacemaker, and poor R progression, lateral T-wave inversions. Two days after her AFib converted, the EKG showed resolution of the lateral T-wave inversions and new T-wave flattening in the lateral leads. Because of the presentation with jaw pain and these EKG changes, she will require outpatient workup for angina and coronary disease, with outpatient stress testing. Because of her obesity, sleep apnea should also be ruled out as the etiology for new onset atrial fibrillation. The patient was discharged on new Cardizem-CD 120 mg p.o. daily and Pradaxa 150 mg p.o. b.i.d. with a CHADS score of 2. Her amlodipine from prior to admission was discontinued entirely. 2. Hypertension. With use of Cardizem for atrial fibrillation rate control, her blood pressure was under control during this admission. 3. Hypokalemia. The patient presented with a potassium level of 2.8, despite not being on any diuretics at admission. Hypokalemia was replaced with IV and p.o. doses and she was discharged on a new oral medication of potassium chloride 20 mEq p.o. daily. CONDITION AT DISCHARGE: Fair. PHYSICAL EXAMINATION AT DISCHARGE: Blood pressure 150/70, sinus rhythm with rates in the 70s and an entirely normal physical examination. MEDICATIONS AT DISCHARGE 1. Pravastatin 20 mg p.o. daily. 2. Potassium chloride 20 mEq p.o. daily. 3. Multivitamin daily. 4. Diltiazem CD 120 mg p.o. daily in the a.m. 5. Pradaxa 150 mg p.o. b.i.d. 6. Baby aspirin 81 mg p.o. daily. FOLLOWUP: Follow up with her primary care doctor for scheduling an outpatient stress test and referral to a Manager Transplant for further management of new onset of atrial fibrillation and abnormal EKG and possible angina. TIME FOR COMPLETION OF DISCHARGE: Less than 30 minutes. JOB #: [id number] [facility] JOB #:[id number] NAYANA
[2017-07-02] MEDS ORDERED: diltiaZEM CD 120 MG CAPSULE PO SCH (09:00)
== END 2017-07-01 18:39 | disposition home or self-care (01) | DRG 310 ==
LOC: EDUNIT# → ED 14:33 → ICU 16:44 → MS2 06-30 13:45
PROVIDERS: ADMIT Internal Medicine; ATTEND Internal Medicine
DX: I48.91 Unspecified atrial fibrillation (principal); I10 Essential (primary) hypertension; E87.6 Hypokalemia; I11.9 Hypertensive heart disease without heart failure; E66.9 Obesity, unspecified; E78.5 Hyperlipidemia, unspecified; Z96.651 Presence of right artificial knee joint; Z68.38 Body mass index [BMI] 38.0-38.9, adult; Z79.82 Long term (current) use of aspirin
CPT/HCPCS: 36415; 71010; 80048; 80053; 80061; 81001; 81003; 83690; 83735; 83880; 84100; 84443; 84484; 85025; 85610; 87086; 87150; 93005; 93306; 96374; 99283; 99284; 99285

== ENCOUNTER 2017-07-12 23:21 | Outpatient (CLI) | payer MEDICARE | END 2017-07-12 23:22 | disposition critical access hospital (66) | LOC: EMS 23:21 | PROVIDERS: ATTEND Surgery | DX: R00.0 Tachycardia, unspecified (principal); R42 Dizziness and giddiness | CPT/HCPCS: A0425; A0427 ==

== ENCOUNTER 2017-07-12 23:47 | Emergency (ER) | payer MEDICARE ==
[2017-07-13] MEDS ORDERED: SODIUM CHLORIDE FLUSH 0.9% 10 ML SYRINGE IVP ONE (00:14)
[2017-07-13 00:26] LABS: BASOPHILS # (AUTO) 0.2 10^3/uL (0.0-0.1); EOSINOPHILS # (AUTO) 0.5 10^3/uL (0.0-0.7); EOSINOPHILS % (AUTO) 6.6 %; HCT - HEMATOCRIT 44.8 % (37.0-47.0); LYMPHOCYTES # (AUTO) 2.2 10^3/uL (1.5-3.5); LYMPHOCYTES % (AUTO) 27.7 %; MEAN CORPUSCULAR HEMOGLOBIN 28.5 pg (27.0-31.0); MEAN CORPUSCULAR HGB CONC 33.4 g/dL (32.0-36.0); MEAN CORPUSCULAR VOLUME 85.1 fL (81.0-99.0); MEAN PLATELET VOLUME 8.5 fL (7.9-10.8); MONOCYTES # (AUTO) 0.6 10^3/uL (0.0-1.0); MONOCYTES % (AUTO) 7.8 %; NEUTROPHILS # (AUTO) 4.4 10^3/uL (1.5-6.6); NEUTROPHILS % (AUTO) 55.9 %; RED BLOOD COUNT 5.26 10^6/uL (4.20-5.40); RED CELL DISTRIBUTION WIDTH 14.7 % (12.0-15.0); UNCORRECTED WHITE BLOOD COUNT 7.8 x10^3/uL; WHITE BLOOD COUNT 7.8 x10^3/uL (4.8-10.8)
[2017-07-13 00:37] LABS: ALBUMIN/GLOBULIN RATIO 1.1 (1.0-2.2); BILIRUBIN,TOTAL 0.8 mg/dL (0.2-1.0); CALCIUM 9.5 mg/dL (8.5-10.3); CREATININE 0.7 mg/dL (0.4-1.0); MAGNESIUM 1.8 mg/dL (1.7-2.8); PHOSPHORUS 3.7 mg/dL (2.5-4.6); POTASSIUM 3.3 mmol/L (3.5-5.0); TOTAL PROTEIN 7.6 g/dL (6.7-8.2)
--- NOTE | 2017-07-13 00:38 | ED Physician Documentation ---
PD HPI CHEST PAIN - Stated complaint Stated Complaint: HEART PALP - Chief complaint Chief Complaint: Cardiac - History obtained from History obtained from: Patient, EMS - History of Present Illness Timing - onset: How many minutes ago (45) Timing - onset during: Rest Timing - details: Abrupt onset, Now resolved Quality: Other (palpitations) Worsened by: No: Exertion, Inspiration Associated symptoms: Palpitations Similar symptoms before: Work up / diagnostics, Treatment, Follow up Recently seen: Emergency Dept, Admitted - Additional information Additional information: Patient is a 77 year old female with a history of a fib. Patient was admitted about 2 weeks ago and started on pradaxa and metoprolol. Patient felt like her heart was racing tonight so she called ems. when ems arrived patient was in a sinus rhythm but wanted to come get checked out. Review of Systems Constitutional: denies: Fever, Chills Eyes: denies: Decreased vision, Photophobia Ears: reports: Reviewed and negative Nose: reports: Reviewed and negative Throat: reports: Reviewed and negative Cardiac: reports: Palpitations. denies: Chest pain / pressure, Pedal edema, Calf pain Respiratory: denies: Cough, Wheezing GI: denies: Nausea, Vomiting : denies: Dysuria, Frequency, Hesitancy Skin: denies: Rash, Lesions Musculoskeletal: denies: Neck pain, Back pain, Extremity pain Neurologic: denies: Generalized weakness, Focal weakness, Numbness, Difficulty speaking, Confused, Headache, Head injury Immunocompromised: denies: Immunocompromised PD PAST MEDICAL HISTORY - Past Medical History Past Medical History: Yes Cardiovascular: Hypertension, High cholesterol, Atrial fibrillation Respiratory: Other Neuro: None Endocrine/Autoimmune: None GI: None BRAKE RIDER: None : None HEENT: None Psych: None Musculoskeletal: Osteoarthritis Derm: Rosacea - Past Surgical History Ortho: Knee replacement HEENT: Tonsil/Adenoidectomy - Present Medications Home Medications: Ambulatory Orders Medication Instructions Recorded Confirmed Multivitamin [Multivitamins] 1 each PO DAILY 07/12/15 07/12/17 Pravastatin Sodium 20 mg PO DAILY 07/12/15 07/12/17 Dabigatran [Pradaxa] 150 mg PO BID #60 capsule 07/01/17 07/12/17 Diltiazem HCl [Dilt-Xr] 120 mg PO DAILY 07/12/17 07/13/17 Potassium Chloride [K-Dur] 20 meq PO DAILY 07/12/17 07/12/17 - Allergies Allergies/Adverse Reactions: Allergies Allergy/AdvReac Type Severity Reaction Status Date / Time No Known Drug Allergies Allergy Verified 06/29/17 14:45 - Social History Does the pt smoke?: No Smoking Status: Never smoker Does the pt drink ETOH?: No Does the pt have substance abuse?: No - Immunizations Immunizations are current?: Yes - POLST Patient has POLST: No POLST Status: Full Code PD ED PE NORMAL - Vitals Vital signs reviewed: Yes - General General: Alert and oriented X 3, No acute distress, Well developed/nourished - HEENT HEENT: Atraumatic, PERRL, Moist mucous membranes - Neck Neck: Supple, no meningeal sign, No JVD - Cardiac Cardiac: RRR, No murmur - Respiratory Respiratory: No respiratory distress, Clear bilaterally - Abdomen Abdomen: Soft, Non tender, Non distended - Derm Derm: Normal color, Warm and dry, No rash - Extremities Extremities: No deformity, No calf tenderness / cord - Neuro Neuro: Alert and oriented X 3, No motor deficit, No sensory deficit, Normal speech - Psych Psych: Normal mood Results - Vitals Vitals: Vital Signs - 24 hr 07/12/17 07/13/17 07/13/17 23:55 00:05 00:39 Temperature 36.9 C Heart Rate 92 84 Respiratory 18 18 Rate Blood Pressure 153/90 H 127/73 Blood Pressure 134/70 H [Left] O2 Saturation 96 95 07/13/17 07/13/17 00:58 01:16 Temperature Heart Rate 74 73 Respiratory 18 16 Rate Blood Pressure 118/66 120/65 Blood Pressure [Left] O2 Saturation 96 99 Oxygen O2 Source Room air - EKG (time done) 0007 Rate: Rate (enter#) (79) [place]: LAD Intervals: Normal SC Ischemia: Q waves Compare to prior EKG: Unchanged from prior EKG - Labs Labs: Laboratory Tests 07/13/17 07/13/17 07/13/17 00:14 00:14 00:14 WBC 7.8 RBC 5.26 Hgb 15.0 Hct 44.8 MCV 85.1 MCH 28.5 MCHC 33.4 RDW 14.7 Plt Count 234 MPV 8.5 Neut # 4.4 Lymph # 2.2 [place] # 0.6 Eos # 0.5 Baso # 0.2 H Absolute Nucleated RBC 0.00 Nucleated RBC % 0.0 Sodium 139 Potassium 3.3 L Chloride 104 Carbon Dioxide 25 Anion Gap 10.0 BUN 15 Creatinine 0.7 Estimated GFR (MDRD) 81 L Glucose 134 H Calcium 9.5 Phosphorus 3.7 Magnesium 1.8 Total Bilirubin 0.8 AST 25 ALT 21 Alkaline Phosphatase 28 L Troponin I < 0.04 B-Natriuretic Peptide Total Protein 7.6 Albumin 4.0 Globulin 3.6 Albumin/Globulin Ratio 1.1 Lipase 26 TSH 07/13/17 07/13/17 00:14 00:14 WBC RBC Hgb Hct MCV MCH MCHC RDW Plt Count MPV Neut # Lymph # [place] # Eos # Baso # Absolute Nucleated RBC Nucleated RBC % Sodium Potassium Chloride Carbon Dioxide Anion Gap BUN Creatinine Estimated GFR (MDRD) Glucose Calcium Phosphorus Magnesium Total Bilirubin AST ALT Alkaline Phosphatase Troponin I B-Natriuretic Peptide 71 Total Protein Albumin Globulin Albumin/Globulin Ratio Lipase TSH 4.16 - Rads (name of study) chest x-ray Radiology: Final report received (normal single view chest) PD MEDICAL DECISION MAKING - ED course Complexity details: reviewed old records, reviewed results, re-evaluated patient , considered differential, d/w patient ED course: Patient was seen and examined at bedside. Patient was well appearing and in no acute distress. ekg was performed and showed normal sinus rhythm. Patient's diagnostics were all within normal limits and there was no irregular rhythm while in the emergency department. Patient required no further work up and was stable for discharge with outpatient follow up. Departure - Departure Disposition: 01 Home, Self Care Clinical Impression: Heart palpitations Condition: Good Instructions: ED Palpitations Follow-Up: primary,care provider [Other] - Within 3 Days Comments: Your diagnostics today were within normal limits. there were no acute abnormalities and there was no sign of a-fib. You should follow up with your doctor and possible use a holter monitor to monitor what is exactly happening when you are having these symptoms. You may return to the emergency department at any time for new, worsening or uncontrollable symptoms. Discharge Date/Time: 07/13/17 01:29
--- NOTE | 2017-07-13 00:51 | XRAY Preliminary Report ---
Exam: XR CHEST 1 VIEW IMPRESSION: Normal single view chest. [facility] SITE ID: [id number]
--- NOTE | 2017-07-13 00:58 | XRAY Report ---
EXAM: CHEST RADIOGRAPHY EXAM DATE: 07/13/2017 12:31 AM. CLINICAL HISTORY: Palpitations. COMPARISON: 06/29/2017. TECHNIQUE: 1 view. FINDINGS: Lungs/Pleura: No focal opacities evident. No pleural effusion. No pneumothorax. Mediastinum: Within exam limitations, the cardiomediastinal contour is normal. Other: None. IMPRESSION: Normal single view chest. [facility] Referring Provider Line: [phone] SITE ID: [id number]
[2017-07-13] MEDS ORDERED: POTASSIUM CHLORIDE 20 MEQ TABLET PO STA (01:11)
[2017-07-13 01:17] VITALS: BP 120/65
[2017-07-13] MEDS ORDERED: POTASSIUM CHLORIDE 20 MEQ TABLET PO ONE (01:18)
== END 2017-07-13 01:29 | disposition home or self-care (01) ==
LOC: EDUNIT# → ED 23:47
DX: R00.2 Palpitations (principal); I10 Essential (primary) hypertension; E78.00 Pure hypercholesterolemia, unspecified
CPT/HCPCS: 36415; 71010; 80053; 83690; 83735; 83880; 84100; 84443; 84484; 85025; 93005; 99284; A9270

== ENCOUNTER 2017-07-14 14:06 | Outpatient (CLI) | payer MEDICARE | END 2017-07-14 14:07 | disposition EMS.NT | LOC: EMS 14:06 | PROVIDERS: ATTEND Surgery | DX: R09.89 Other specified symptoms and signs involving the circulatory and respiratory systems (principal) ==

== ENCOUNTER 2017-07-16 19:39 | Outpatient (CLI) | payer MEDICARE | END 2017-07-16 19:40 | disposition critical access hospital (66) | LOC: EMS 19:39 | PROVIDERS: ATTEND Surgery | DX: R00.0 Tachycardia, unspecified (principal) | CPT/HCPCS: A0425; A0429 ==

== ENCOUNTER 2017-08-31 16:54 | Outpatient (CLI) | payer MEDICARE | END 2017-08-31 16:55 | disposition critical access hospital (66) | LOC: EMS 16:54 | PROVIDERS: ATTEND Surgery | DX: N93.9 Abnormal uterine and vaginal bleeding, unspecified (principal) | CPT/HCPCS: A0425; A0429 ==

== ENCOUNTER 2017-08-31 17:44 | Observation (INO) | payer MEDICARE ==
--- NOTE | 2017-08-31 18:18 | ED Physician Documentation ---
PD HPI ABD PAIN - Stated complaint Stated Complaint: FEM - Chief complaint Chief Complaint: Abd Pain - History obtained from History obtained from: Patient - History of Present Illness Timing - onset: Other (77-year-old woman recently started on Pradaxa for atrial fibrillation, she has no valvular abnormalities per her. She has a known history of endometrial polyps, had one removed about [address] Marr and has another known one. She has had slight vaginal bleeding but today was much heavier although she denies weakness or shortness of breath. There is no pelvic pain with it.) Review of Systems Ten Systems: 10 systems reviewed and negative Constitutional: reports: Reviewed and negative Throat: reports: Reviewed and negative Cardiac: reports: Reviewed and negative Respiratory: reports: Reviewed and negative PD PAST MEDICAL HISTORY - Past Medical History Cardiovascular: Hypertension, High cholesterol, Atrial fibrillation Respiratory: Other Neuro: None Endocrine/Autoimmune: None GI: None FISHER HAND LINE: None : None HEENT: None Psych: None Musculoskeletal: Osteoarthritis Derm: Rosacea - Past Surgical History Ortho: Knee replacement HEENT: Tonsil/Adenoidectomy - Present Medications Home Medications: Ambulatory Orders Medication Instructions Recorded Confirmed Multivitamin [Multivitamins] 1 each PO DAILY 07/12/15 08/31/17 Pravastatin Sodium 20 mg PO DAILY 07/12/15 08/31/17 Potassium Chloride [K-Dur] 20 meq PO DAILY 07/12/17 08/31/17 Dabigatran [Pradaxa] 150 mg PO BID 08/31/17 08/31/17 Metoprolol Tartrate 100 mg PO BID 08/31/17 08/31/17 Propafenone HCl 1 tab PO TID 08/31/17 08/31/17 - Allergies Allergies/Adverse Reactions: Allergies Allergy/AdvReac Type Severity Reaction Status Date / Time No Known Drug Allergies Allergy Verified 08/31/17 17:48 - Social History Does the pt smoke?: No Smoking Status: Never smoker Does the pt drink ETOH?: No Does the pt have substance abuse?: No - Family History Family history: reports: Non contributory - Immunizations Immunizations are current?: Yes - POLST Patient has POLST: No POLST Status: Full Code PD ED PE NORMAL - Vitals Vital signs reviewed: Yes - General General: Alert and oriented X 3, No acute distress - HEENT HEENT: PERRL, EOMI - Neck Neck: Supple, no meningeal sign, No bony TTP - Cardiac Cardiac: No murmur, Other (Irregularly irregular) - Respiratory Respiratory: No respiratory distress, Clear bilaterally - Abdomen Abdomen: Soft, Non tender - Female Female : Mobile Pet Groomer present (Elana Flores RN), Other (A fair amount of blood and clot in the vault) - Back Back: No CVA TTP, No spinal TTP - Derm Derm: Normal color, Warm and dry - Neuro Neuro: Alert and oriented X 3 Eye Opening: Spontaneous Motor: Obeys Commands Verbal: Oriented GCS Score: 15 - Psych Psych: Normal mood, Normal affect Results - Vitals Vitals: Vital Signs - 24 hr 08/31/17 08/31/17 17:42 19:26 Temperature 36.7 C 36.7 C Heart Rate 95 81 Respiratory 16 18 Rate Blood Pressure 141/90 H 140/95 H O2 Saturation 97 97 Oxygen O2 Source Room air - Labs Labs: Laboratory Tests 08/31/17 08/31/17 08/31/17 18:10 18:10 18:10 WBC 6.3 RBC 5.10 Hgb 14.5 Hct 44.1 MCV 86.6 MCH 28.4 MCHC 32.8 RDW 14.8 Plt Count 205 MPV 8.8 Neut # 3.7 Lymph # 1.5 Furnas # 0.5 Eos # 0.5 Baso # 0.0 Absolute Nucleated RBC 0.00 Nucleated RBC % 0.0 PT INR APTT Sodium 140 Potassium 4.1 Chloride 101 Carbon Dioxide 26 Anion Gap 13.0 BUN 16 Creatinine 1.3 H Estimated GFR (MDRD) 40 L Glucose 107 H Calcium 9.5 Total Bilirubin 0.5 AST 22 ALT 16 Alkaline Phosphatase 24 L Total Protein 7.0 Albumin 3.7 Globulin 3.3 Albumin/Globulin Ratio 1.1 Lipase 23 Blood Type A NEGATIVE Antibody Screen POSITIVE Antibody Identification Anti-D 08/31/17 18:24 WBC RBC Hgb Hct MCV MCH MCHC RDW Plt Count MPV Neut # Lymph # Furn[place] # Eos # Baso # Absolute Nucleated RBC Nucleated RBC % PT 19.5 H INR 1.8 H APTT 60.9 H Sodium Potassium Chloride Carbon Dioxide Anion Gap BUN Creatinine Estimated GFR (MDRD) Glucose Calcium Total Bilirubin AST ALT Alkaline Phosphatase Total Protein Albumin Globulin Albumin/Globulin Ratio Lipase Blood Type Antibody Screen Antibody Identification PD MEDICAL DECISION MAKING - ED course ED course: 77yo with vag bleeding on pradaxa for afib but no valvular dz. ChadsVasc score is 4. Spoke with Dr Lopez, On-call gynecology who saw the patient and plans to observe her for serial H&H. Also spoke with Dr. Guzmán on-call for [facility] who is okay with us stopping Pradaxa but it needs to be restarted as soon as possible after her procedure definitive treatment. Departure - Departure Disposition: ED Place in Observation Clinical Impression: Adequate anticoagulation on anticoagulant therapy, Vaginal bleeding, Endometrial polyp Condition: Stable Discharge Date/Time: 08/31/17 21:24
[2017-08-31 18:19] LABS: BASOPHILS % (AUTO) 0.8 %; EOSINOPHILS # (AUTO) 0.5 10^3/uL (0.0-0.7); EOSINOPHILS % (AUTO) 7.5 %; HCT - HEMATOCRIT 44.1 % (37.0-47.0); HGB - HEMOGLOBIN 14.5 g/dL (12.0-16.0); LYMPHOCYTES # (AUTO) 1.5 10^3/uL (1.5-3.5); LYMPHOCYTES % (AUTO) 24.5 %; MEAN CORPUSCULAR HEMOGLOBIN 28.4 pg (27.0-31.0); MEAN CORPUSCULAR HGB CONC 32.8 g/dL (32.0-36.0); MEAN CORPUSCULAR VOLUME 86.6 fL (81.0-99.0); MEAN PLATELET VOLUME 8.8 fL (7.9-10.8); MONOCYTES # (AUTO) 0.5 10^3/uL (0.0-1.0); MONOCYTES % (AUTO) 8.6 %; NEUTROPHILS # (AUTO) 3.7 10^3/uL (1.5-6.6); NEUTROPHILS % (AUTO) 58.6 %; RED CELL DISTRIBUTION WIDTH 14.8 % (12.0-15.0); UNCORRECTED WHITE BLOOD COUNT 6.3 x10^3/uL; WHITE BLOOD COUNT 6.3 x10^3/uL (4.8-10.8)
[2017-08-31 18:31] LABS: ALBUMIN/GLOBULIN RATIO 1.1 (1.0-2.2); BILIRUBIN,TOTAL 0.5 mg/dL (0.2-1.0); CALCIUM 9.5 mg/dL (8.5-10.3); CREATININE 1.3 mg/dL (0.4-1.0); POTASSIUM 4.1 mmol/L (3.5-5.0)
[2017-08-31 18:48] LABS: INR 1.8 (0.8-1.2); PT - PROTHROMBIN TIME 19.5 secs (9.9-12.6)
[2017-08-31 18:55] LABS: PARTIAL THROMBOPLASTIN TIME 60.9 secs (24.9-33.3)
[2017-08-31] MEDS ORDERED: PRAVASTATIN 10 MG TABLET PO SCH (20:51)
[2017-08-31] MEDS ORDERED: POTASSIUM CHLORIDE 20 MEQ TABLET PO SCH (20:53)
[2017-08-31] MEDS: METOPROLOL TARTRATE 50 MG TABLET PO SCH (21:48)
[2017-08-31] MEDS: PROPAFENONE 150 MG TABLET PO SCH (21:52)
[2017-08-31] MEDS: ACETAMINOPHEN 500 MG TABLET PO SCH (21:52)
--- NOTE | 2017-09-01 03:31 | PREOP HISTORY & PHYSICAL ---
DATE OF ADMISSION/SURGERY: 09/03/2017 IDENTIFICATION: The patient is a 77-year-old, G2, P1, AB1 female who reached menopause at roughly 51 years of age. CHIEF COMPLAINT: Vaginal bleeding. HISTORY OF PRESENT ILLNESS: At roughly 1630, she developed very heavy vaginal bleeding, soaking a pad. She called 911 at roughly 1700. She presented to the ED , at which time she was noted to have blood running down her leg. She was examined by the ED doctor, who saw blood coming from the cervix. She has a history of having a cervical polyp in 2014. At that point, she had a hysteroscopy with D and C, with removal of a polyp. This was noted to be benign without evidence of any cancer. She developed bleeding again this summer, at which time she had an ultrasound which showed evidence of a polyp. She had an endometrial biopsy which showed only scant tissue. The ultrasound was done in April 2017. Uterus was 10.6 cm with a 17 mm thickened endometrium with a polyp which was felt to be 1.3 x 0.8 x 0.7. She also has several fibroids in the uterus, ranging in size from 3.5 to 5 cm. Her endometrial biopsy performed at that time showed only scant tissue. Following a discussion with Dr. Pierce at that time, it was decided to observe her. She subsequently developed problems with atrial fibrillation, and was placed on Pradaxa this fall. This is what appears to have precipitated her bleeding. PAST MEDICAL HISTORY: Positive for atrial fibrillation, as well as hypertension. SURGICAL HISTORY: Positive left knee replacement in 2008, a hysteroscopy with D and C in 2014, as well as tonsillectomy and adenoidectomy at 6 years of age. ALLERGIES: POSSIBLE TO PENICILLIN. SHE HAS A FAMILY HISTORY OF PENICILLIN ALLERGY, BUT SHE HAS NEVER TAKEN IT. CURRENT MEDICATIONS 1. Pradaxa 150 mg p.o. b.i.d. 2. Lopressor 100 mg p.o. b.i.d. 3. Pravastatin 20 mg daily. 4. Rythmol 225 t.i.d. 5. Potassium 20 mEq daily. HABITS: The patient denies use of alcohol, tobacco, or street or addictive drugs. SOCIAL HISTORY: The patient is a , lives alone. She currently is still able to drive. FAMILY HISTORY: Positive for mother who at the age of 95 of Alzheimer disease, and a father who at 90 from an MA. She denies a history of any hypertension, breast cancer, ovarian cancer. REVIEW OF SYSTEMS: Unremarkable. She denies any difficulty with her vision, does have the atrial fibrillation as previously noted. Denies any cough. Denies any joint pain, nausea, vomiting, diarrhea, constipation. PHYSICAL EXAMINATION The patient is a well-developed, well-nourished, white female. She is in no acute distress at this time. VITAL SIGNS: Temperature is 36.7, blood pressure is 140/95, respirations are 18 , saturating at 97% on room air. HEENT: Pupils are equal, round. Extraocular muscles are intact. There is no evidence of any scleral icterus. HEART: Irregular in rate and rhythm. LUNGS: Cao are clear. ABDOMEN: Soft. She has an umbilical hernia. No palpable masses. Vulva shows bright red blood on in. The vaginal vault shows some dark red blood. The cervix shows some mild oozing coming from it at this time. No evidence of any lacerations or cervical polyps visualized. There was no cervical motion tenderness noted. LABORATORIES: CBC shows a white count of 6.3, hemoglobin 14.5, hematocrit is 44 , platelets are 205. Electrolytes are within normal limits, with the exception of an elevated creatinine. PT is 19.5 with an INR of 1.8, APTT is 60.9. IMPRESSION: A 77-year-old female with probable endometrial polyp with bleeding secondary to Pradaxa, which she is taking at this time. At this point, following discussion with her sales floor associate, will hold her Pradaxa for 24 to 48 hours, and schedule her for a hysteroscopy D and C Sunday if possible. JOB #: [id number] EXT JOB #:[id number] MTDHuma
[2017-09-01] MEDS: PROPAFENONE 150 MG TABLET PO SCH ×2 (05:40→06:57)
[2017-09-01] MEDS: ACETAMINOPHEN 500 MG TABLET PO SCH ×2 (07:58→11:49)
[2017-09-01] MEDS: METOPROLOL TARTRATE 50 MG TABLET PO SCH (08:39)
--- NOTE | 2017-09-01 09:05 | PROVIDER PROGRESS NOTE ---
Subjective - Prog Note Date Prog Note Date: 09/01/17 Prog Note Time: 09:02 - Subjective Pt reports feeling: No change (Pt states that her bleeding has resolved. Pain 0 /10) Objective - Vital Signs/Intake & Output Reviewed Vital Signs: Yes Vital Signs: Vital Signs x48h Temp Pulse Resp BP BP BP Pulse Ox 09/01/17 08:39 123/62 09/01/17 08:12 37.1 C 76 18 123/62 95 09/01/17 06:03 36.8 C 90 18 116/74 96 Intake & Output: Intake & Output 08/29/17 08/30/17 08/31/17 09/01/17 23:59 23:59 23:59 23:59 Intake Total 270 Balance 270 - Objective General Appearance: positive: No acute distress, Alert Neurologic/Psychiatric: positive: Oriented x3, CN's nml (2-12) - Lab Results Fish Bones: 08/31/17 18:10 08/31/17 18:10 Assessment/Plan - Problem List (1) Endometrial polyp Impression: Bleeding has totally resolved. Pt instructed to resume meds except to hold Prodasxa. pt will be scheduled for Hysterscopy with D&C as soon as possible. Call if heavy bleeding recuses.
[2017-09-01] MEDS ORDERED: PROPAFENONE 150 MG TABLET PO SCH (12:00)
[2017-09-01 13:19] VITALS: BP 134/69
== END 2017-09-01 13:00 | disposition home or self-care (01) ==
LOC: ED 17:44 → OBS 20:46
PROVIDERS: ADMIT Obstetrics & Gynecology; ATTEND Obstetrics & Gynecology
DX: D68.32 Hemorrhagic disorder due to extrinsic circulating anticoagulants (principal); N95.0 Postmenopausal bleeding; T45.515A Adverse effect of anticoagulants, initial encounter; I48.91 Unspecified atrial fibrillation; I10 Essential (primary) hypertension; Z79.01 Long term (current) use of anticoagulants; D25.9 Leiomyoma of uterus, unspecified; Z96.652 Presence of left artificial knee joint; Z87.42 Personal history of other diseases of the female genital tract
CPT/HCPCS: 36415; 80053; 83690; 85025; 85610; 85730; 86850; 86870; 86900; 86901; 99283; 99284; A9270; G0378

== ENCOUNTER 2017-09-03 09:57 | Day surgery (SDC) | payer MEDICARE ==
[2017-09-03] MEDS ORDERED: LACTATED RINGERS 1,000 ML IV ONE (10:06)
[2017-09-03] MEDS ORDERED: LIDOCAINE 1% 50 ML MDV SUBQ ONE ×2 (10:30)
[2017-09-03 10:47] LABS: BASOPHILS # (AUTO) 0.1 10^3/uL (0.0-0.1); BASOPHILS % (AUTO) 0.8 %; EOSINOPHILS # (AUTO) 0.4 10^3/uL (0.0-0.7); EOSINOPHILS % (AUTO) 5.6 %; HGB - HEMOGLOBIN 15.2 g/dL (12.0-16.0); LYMPHOCYTES # (AUTO) 1.7 10^3/uL (1.5-3.5); LYMPHOCYTES % (AUTO) 21.6 %; MEAN CORPUSCULAR HEMOGLOBIN 28.4 pg (27.0-31.0); MEAN CORPUSCULAR HGB CONC 33.2 g/dL (32.0-36.0); MEAN CORPUSCULAR VOLUME 85.7 fL (81.0-99.0); MEAN PLATELET VOLUME 8.9 fL (7.9-10.8); MONOCYTES # (AUTO) 0.6 10^3/uL (0.0-1.0); MONOCYTES % (AUTO) 7.8 %; NEUTROPHILS % (AUTO) 64.2 %; PLT - PLATELET COUNT 190 10^3/uL (130-450); RED BLOOD COUNT 5.33 10^6/uL (4.20-5.40); RED CELL DISTRIBUTION WIDTH 14.7 % (12.0-15.0); WHITE BLOOD COUNT 7.8 x10^3/uL (4.8-10.8)
[2017-09-03 10:51] LABS: CALCIUM 9.1 mg/dL (8.5-10.3); CREATININE 1.7 mg/dL (0.4-1.0)
[2017-09-03 10:53] LABS: INR 1.3 (0.8-1.2); PT - PROTHROMBIN TIME 14.4 secs (9.9-12.6)
[2017-09-03] MEDS ORDERED: MIDAZOLAM 2 MG/2 ML VIAL IVP ONE (12:05)
[2017-09-03] MEDS ORDERED: ONDANSETRON 4 MG/2 ML VIAL IVP ONE (12:05)
[2017-09-03] MEDS ORDERED: fentaNYL 100 MCG/2 ML VIAL IVP ONE (12:05)
[2017-09-03] MEDS ORDERED: DEXAMETHASONE 4 MG/ML VIAL IVP ONE (12:05)
[2017-09-03] MEDS ORDERED: PROPOFOL 200 MG/20 ML VIAL IVP ONE (12:05)
--- NOTE | 2017-09-03 12:52 | OPERATIVE REPORT ---
Operative Report - Other Other Information/Narrative: Date of operation: 09/03/2017 Surgeon: Jing FORRESTEROG Belly Packer: None [employer] Practitioner: Nata Clay CRNA Anesthesia: LMA Pre-op Dx: 1. 77 yo 2. Postmenopausal bleeding Post-op Dx: 1. 77 yo 2. Postmenopausal bleeding 3. Endometrial polyp Procedure: Hysteroscopy dilation and curettage Findings: Fundal polyp Specimens: Endometrial curettings Drains: None EBL: <5 mL Complications: None Will dictate when [employer]Systems system back up
[2017-09-03] MEDS ORDERED: fentaNYL 100 MCG/2 ML VIAL ONE (13:38)
[2017-09-03 14:07] VITALS: BP 127/67
--- NOTE | 2017-09-03 17:54 | POST OP PROGRESS NOTE ---
Subjective - Other Other Information/Narrative: Date of operation: 09/03/2017 Surgeon: Jing Berger DO FACOG Nba Player: None Access Coordinator: Nata Clay CRNA Anesthesia: LMA Pre-op Dx: 1. 77 yo 2. Postmenopausal bleeding 3. History of endometrial polyps Post-op Dx: 1. 77 yo 2. Postmenopausal bleeding 3. Endometrial polyps Procedure: Hysteroscopy dilation and curettage Findings: Fundal endometrial polyp Specimens: Endometrial curettings Drains: None EBL: <10 mL Complications: None Brief history: The patient is a 77 yo female with a history of postmenopausal bleeding in 2014. On 07/14/2015 she underwent a hysteroscopy dilation and curettage revealing proliferative endometrium and an endometrial polyp. She was instructed to return if the bleeding recurred. On 04/10/2017 I saw Mrs. Rojas again for recurrent postmenopausal bleeding. Work up revealed and endometrium of 17 mm and a possible polyp and multiple leiomyomas. The 04/10/2017 EMB revealed scant fragments of inactive endometrium. A pap smear on the same day was negative as well the screen for high risk HPV. I discussed with the patient on 05/11/2017 her options and she elected to follow up with myself in 4-6 months. Mrs. Rojas presented to [facility] ER with complaints of heavy vaginal bleeding. She had a significant new history of atrial fibrillation and had a pacemaker placed. In addition Mrs. Rojas was anticoagulated with Pradaxa. Dr. Kirk Lopez saw the patient in the ER and was kind enough to have Mrs. Rojas schduled for surgery today after being off of her anticoagulation medications for 48 hours as recommended by her material spreader. I recommended to Mrs Rojas my recommendation to proceed to a hysteroscopy dilation and curettage for postmenopausal bleeding. I discussed with her the risks, benefits, alternatives, indications and expectations of surgery. All of her questions were answered to her satisfaction. Consent forms were signed. Operation in detail: The patient was identified, consented and taken to the operating room where IV access was already in place. She was given sequential compression devices on her lower legs and they were turned on. She was then given satisfactory LMA anesthesia as per Nata Clay. The patient was then prepped and draped in the normal sterile fashion in the lithotomy position using the Jhonatan stirrups. A time out was performed correctly identifying the patient, site of the procedure and the procedure itself. Mrs. Rojas was given 2 gm of IV ancef given her atrial fibrillation and lack of anticoagulation. An open-sided speculum was placed in the vagina and the cervix was identified. A single toothed-tenaculum was placed on the anterior lip of the cervix. The cervix was dilated to an 8 Romansh. A 5 mm hysteroscope was placed into the uterus and water was used as the distending medium. I's and O's were approximately the same at 100 mL each. Inspection of the endometrium revealed a fundal polyp. The endometrium was then curetted and the polyp removed with polyp forceps. Reinspection of the endometrium revealed complete removal of the polyp. No bleeding nor perforation was visualized. This completed the procedure. All instruments were removed from the vagina. Hemostasis was noted. The patient was taken to the recovery room in stable condition. She will be discharged to home after post-operative criteria have been met. All sponge counts were correct x two as per nurse report. The patient will be instructed to take Tylenol 1 gm po Q 8 hours as needed for pain and to restart her Pradaxa this afternoon. I anticipate having the patient see me at [facility] for a routine 2 week postoperative exam or as needed.
== END 2017-09-03 09:58 | disposition home or self-care (01) ==
LOC: SDS 09:57
PROVIDERS: ATTEND Obstetrics & Gynecology
PROC: 0UDB8ZX Extraction of Endometrium, Via Natural or Artificial Opening Endoscopic, Diagnostic (ICD-10-PCS; principal; 2017-09-03 12:00)
DX: N85.01 Benign endometrial hyperplasia (principal); I48.91 Unspecified atrial fibrillation; Z79.01 Long term (current) use of anticoagulants; I10 Essential (primary) hypertension; N95.0 Postmenopausal bleeding; N84.0 Polyp of corpus uteri
CPT/HCPCS: 36415; 58558; 80048; 85025; 85610; 85730; 86850; 86870; 86900; 86901; 88305; 93005; J7120

== ENCOUNTER 2017-10-23 11:09 | Outpatient (CLI) | payer MEDICARE | END 2017-10-23 11:10 | disposition critical access hospital (66) | LOC: EMS 11:09 | PROVIDERS: ATTEND Surgery | DX: R00.0 Tachycardia, unspecified (principal) | CPT/HCPCS: A0425; A0429 ==

== ENCOUNTER 2017-10-23 11:39 | Inpatient (IN) | payer MEDICARE ==
[2017-10-23] MEDS ORDERED: diltiaZEM INJ 5 MG/ML VIAL IVP STA (12:36)
--- NOTE | 2017-10-23 12:39 | ED Physician Documentation ---
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 She has been able to maintain at rest without dyspnea and has no pain in her chest associated with this. Review of Systems Constitutional: denies: Fever, Chills Eyes: denies: Decreased vision Ears: denies: Ear pain Nose: denies: Congestion Throat: denies: Sore throat Cardiac: reports: Palpitations. denies: Chest pain / pressure Respiratory: reports: Dyspnea (exertional). denies: Cough GI: denies: Nausea, Vomiting : denies: Dysuria, Frequency Skin: denies: Rash Musculoskeletal: denies: Neck pain, Back pain, Extremity pain Neurologic: denies: Generalized weakness, Focal weakness, Numbness PD PAST MEDICAL HISTORY - Past Medical History Cardiovascular: Hypertension, High cholesterol, Atrial fibrillation Respiratory: Other Neuro: None Endocrine/Autoimmune: None GI: None ASSISTANT PROFESSOR OF PSYCHOLOGY: None : None HEENT: None Psych: None Musculoskeletal: Osteoarthritis Derm: Rosacea - Past Surgical History Ortho: Knee replacement Cardiovascular: Pacemaker HEENT: Tonsil/Adenoidectomy - Present Medications Home Medications: Ambulatory Orders Medication Instructions Recorded Confirmed Multivitamin [Multivitamins] 1 each PO DAILY 07/12/15 10/23/17 Pravastatin Sodium 20 mg PO DAILY 07/12/15 10/23/17 Potassium Chloride [K-Dur] 20 meq PO DAILY 07/12/17 10/23/17 Dabigatran [Pradaxa] 150 mg PO BID 08/31/17 10/23/17 Metoprolol Tartrate 150 mg PO BID 08/31/17 10/23/17 - Allergies Allergies/Adverse Reactions: Allergies Allergy/AdvReac Type Severity Reaction Status Date / Time No Known Drug Allergies Allergy Verified 10/23/17 12:01 - Social History Does the pt smoke?: No Smoking Status: Never smoker Does the pt drink ETOH?: No Does the pt have substance abuse?: No - Immunizations Immunizations are current?: Yes - POLST Patient has POLST: No POLST Status: Full Code PD ED PE NORMAL - Vitals Vital signs reviewed: Yes (marked tachycardia and mild hypertension) - General General: Alert and oriented X 3, No acute distress, Well developed/nourished - HEENT HEENT: Atraumatic, PERRL - Neck Neck: Supple, no meningeal sign, No bony TTP - Cardiac Cardiac: Other (tachycardic regular and with 2/6 holosytolic flow murmer) - Respiratory Respiratory: No respiratory distress, Clear bilaterally - Abdomen Abdomen: Soft, Non tender - Back Back: No CVA TTP, No spinal TTP - Derm Derm: Normal color, Warm and dry, No rash - Extremities Extremities: No deformity, No edema - Neuro Neuro: No motor deficit, No sensory deficit Eye Opening: Spontaneous Motor: Obeys Commands Verbal: Oriented GCS Score: 15 - Psych Psych: Normal mood, Normal affect Results - Vitals Vitals: Vital Signs - 24 hr 10/23/17 10/23/17 10/23/17 11:40 12:38 12:46 Temperature 36.5 C Heart Rate 144 H 141 H 141 H Respiratory 18 20 16 Rate Blood Pressure 118/93 H 113/99 H 114/87 H O2 Saturation 97 95 96 10/23/17 10/23/17 10/23/17 12:51 12:53 12:55 Temperature Heart Rate 138 H 129 H 113 H Respiratory 20 16 18 Rate Blood Pressure 96/83 H 77/68 L 69/51 L O2 Saturation 94 94 94 10/23/17 10/23/17 10/23/17 13:00 13:09 13:13 Temperature Heart Rate 110 H 117 H 118 H Respiratory 20 16 18 Rate Blood Pressure 85/47 L 80/62 L 82/69 L O2 Saturation 92 93 92 10/23/17 10/23/17 10/23/17 13:15 13:22 13:26 Temperature Heart Rate 117 H 127 H 138 H Respiratory 16 16 15 Rate Blood Pressure 82/69 L 77/63 L 78/50 L O2 Saturation 93 96 96 10/23/17 10/23/17 13:37 13:43 Temperature Heart Rate 138 H 138 H Respiratory 14 16 Rate Blood Pressure 87/63 L 95/75 O2 Saturation 94 94 Oxygen O2 Source Room air - EKG (time done) 1149 Rate: Rate (enter#) (140) Rhythm: Atrial fibrillation Intervals: RBBB Ischemia: ST depression (inferior), Q waves Compare to prior EKG: Changed from prior EKG (SPT 12-11-17 afib with RVR has developed. ) Computer interpretation: Disagree with computer (I believe there is ST deprssion to the inferior leads ) - Labs Labs: Laboratory Tests 10/23/17 10/23/17 10/23/17 11:48 11:48 11:48 WBC 7.5 RBC 5.44 H Hgb 15.5 Hct 47.0 MCV 86.5 MCH 28.5 MCHC 33.0 RDW 15.3 H Plt Count 205 MPV 9.3 Neut # 4.2 Lymph # 2.3 Gillespie # 0.7 Eos # 0.4 Baso # 0.1 Absolute Nucleated RBC 0.01 Nucleated RBC % 0.1 Sodium 137 Potassium 4.2 Chloride 99 L Carbon Dioxide 25 Anion Gap 13.0 BUN 24 H Creatinine 1.4 H Estimated GFR (MDRD) 37 L Glucose 110 H Calcium 9.4 Total Bilirubin 0.6 AST 21 ALT 11 Alkaline Phosphatase 23 L Troponin I < 0.04 Total Protein 7.6 Albumin 4.1 Globulin 3.5 Albumin/Globulin Ratio 1.2 Lipase 25 Urine Color Urine Clarity Urine pH Ur Specific [place] Urine Protein Urine Glucose (UA) Urine Ketones Urine Occult Blood Urine Nitrite Urine Bilirubin Urine Urobilinogen Ur Leukocyte Esterase Ur Microscopic Review Urine Culture Comments 10/23/17 14:54 WBC RBC Hgb Hct MCV MCH MCHC RDW Plt Count MPV Neut # Lymph # Gillespie # Eos # Baso # Absolute Nucleated RBC Nucleated RBC % Sodium Potassium Chloride Carbon Dioxide Anion Gap BUN Creatinine Estimated GFR (MDRD) Glucose Calcium Total Bilirubin AST ALT Alkaline Phosphatase Troponin I Total Protein Albumin Globulin Albumin/Globulin Ratio Lipase Urine Color YELLOW Urine Clarity CLEAR Urine pH 6.0 Ur Specific [place] 1.010 Urine Protein NEGATIVE Urine Glucose (UA) NEGATIVE Urine Ketones NEGATIVE Urine Occult Blood NEGATIVE Urine Nitrite NEGATIVE Urine Bilirubin NEGATIVE Urine Urobilinogen 0.2 (NORMAL) Ur Leukocyte Esterase NEGATIVE Ur Microscopic Review NOT INDICATED Urine Culture Comments NOT INDICATED Procedures - IVC sono (time) 1300 Bedside IVC sono: IVC measures (cm) (2.14), IVC collapsed c insp (cm) (1.82), High CVP PD MEDICAL DECISION MAKING - ED course Complexity details: reviewed old records, reviewed results, re-evaluated patient , considered differential, d/w patient ED course: 77-year-old female with a history of atrial fibrillation with rapid ventricular response has changed some of her medications this past week and last night developed rapid response again. She presents today with heart rate of 140 and she is somewhat dyspneic on exertion but at rest has no specific symptoms. Here in the emergency department she is administered diltiazem 20 mg intravenously and her blood pressure drops into the 70s her rate drops into the 120 range and she developed some pressure in her upper chest. She is administered fluid bolusIn her inferior vena cava is interrogated it does look as though she is not tolerating this rhythm with elevated right heart pressure. Consultation with the patient's neurobiologist is sought and Dr. Kemar Richards of [facility] recommends contacting Dr. Troy Burch cardiology for [place] and he is paged at [phone]. Dr. Burch recommends amioderone bolus and drip as an inpatient and Dr. Kohler our hospitalist here has graciously agreed to care for this patient in the CCU. The patient is administered a bolus of 150mg IV and a drip at 1mg/ min for the next 6 hours Departure - Departure Disposition: 66 [facility] DC/Xfer Clinical Impression: Atrial fibrillation with rapid ventricular response Condition: Fair
[2017-10-23 12:40] LABS: BASOPHILS # (AUTO) 0.1 10^3/uL (0.0-0.1); BASOPHILS % (AUTO) 0.8 %; EOSINOPHILS # (AUTO) 0.4 10^3/uL (0.0-0.7); EOSINOPHILS % (AUTO) 4.7 %; HGB - HEMOGLOBIN 15.5 g/dL (12.0-16.0); LYMPHOCYTES # (AUTO) 2.3 10^3/uL (1.5-3.5); LYMPHOCYTES % (AUTO) 30.2 %; MEAN CORPUSCULAR HEMOGLOBIN 28.5 pg (27.0-31.0); MEAN CORPUSCULAR VOLUME 86.5 fL (81.0-99.0); MEAN PLATELET VOLUME 9.3 fL (7.9-10.8); MONOCYTES # (AUTO) 0.7 10^3/uL (0.0-1.0); MONOCYTES % (AUTO) 8.7 %; NEUTROPHILS # (AUTO) 4.2 10^3/uL (1.5-6.6); NEUTROPHILS % (AUTO) 55.6 %; PLT - PLATELET COUNT 205 10^3/uL (130-450); RED BLOOD COUNT 5.44 10^6/uL (4.20-5.40); RED CELL DISTRIBUTION WIDTH 15.3 % (12.0-15.0); WHITE BLOOD COUNT 7.5 x10^3/uL (4.8-10.8)
[2017-10-23 12:52] LABS: ALBUMIN 4.1 g/dL (3.2-5.5); ALBUMIN/GLOBULIN RATIO 1.2 (1.0-2.2); BILIRUBIN,TOTAL 0.6 mg/dL (0.2-1.0); CALCIUM 9.4 mg/dL (8.5-10.3); CREATININE 1.4 mg/dL (0.4-1.0); TOTAL PROTEIN 7.6 g/dL (6.7-8.2)
[2017-10-23] MEDS ORDERED: AMIODARONE 150 MG/100 ML 100 ML IV ONE (14:40)
[2017-10-23] MEDS ORDERED: AMIODARONE 360 MG/200 ML 200 ML IV ONE ×2 (14:40→15:43)
[2017-10-23 15:03] LABS: BILIRUBIN,URINE NEGATIVE (NEGATIVE); GLUCOSE, URINE (UA) NEGATIVE (NEGATIVE); KETONES,URINE (UA) NEGATIVE (NEGATIVE); LEUKOCYTE ESTERASE, URINE NEGATIVE (NEGATIVE); NITRITE,URINE NEGATIVE (NEGATIVE); OCCULT BLOOD,URINE NEGATIVE (NEGATIVE); PROTEIN,URINE NEGATIVE (NEGATIVE); UROBILINOGEN,URINE 0.2 (NORMAL) E.U./dL (NORMAL)
[2017-10-23 15:09] LABS: CLARITY,URINE CLEAR (CLEAR)
[2017-10-23] MEDS ORDERED: ZOLPIDEM 5 MG TABLET PO PRN (15:32)
[2017-10-23] MEDS ORDERED: ACETAMINOPHEN 325 MG TABLET PO PRN (15:32)
[2017-10-23] MEDS ORDERED: SODIUM CHLORIDE FLUSH 0.9% 10 ML SYRINGE IVP PRN (15:32)
[2017-10-23] MEDS ORDERED: PROCHLORPERAZINE 10 MG/2 ML VIAL IVP PRN (15:32)
[2017-10-23] MEDS ORDERED: MORPHINE 2 MG/ML CARPUJECT IVP PRN (15:32)
--- NOTE | 2017-10-23 16:10 | XRAY Preliminary Report ---
Exam: XR CHEST 1 VIEW X-RAY IMPRESSION: Clear lungs. No pneumothorax. New pacemaker device. [facility] SITE ID: [id number]
--- NOTE | 2017-10-23 16:10 | XRAY Report ---
EXAM: CHEST RADIOGRAPHY EXAM DATE: 10/23/2017 03:58 PM. CLINICAL HISTORY: Aflutter, chest pain, Hypotension. COMPARISON: 11/18/2009. TECHNIQUE: 1 view. FINDINGS: Lungs/Pleura: No focal opacities evident. No pleural effusion. No pneumothorax. Mediastinum: There is a new pacemaker device with leads overlying the right atrium and right ventricl e. The heart size is normal. Other: None. IMPRESSION: Clear lungs. No pneumothorax. New pacemaker device. [facility] Referring Provider Line: [phone] SITE ID: [id number]
[2017-10-23] MEDS: PRAVASTATIN 10 MG TABLET PO SCH (20:53)
[2017-10-23] MEDS: DABIGATRAN 75 MG CAPSULE PO SCH (20:53)
[2017-10-23] MEDS: AMIODARONE 360 MG/200 ML 200 ML IV SCH (21:44)
[2017-10-23] MEDS: SODIUM CHLORIDE FLUSH 0.9% 10 ML SYRINGE IVP SCH (21:44)
[2017-10-24] MEDS: AMIODARONE 360 MG/200 ML 200 ML IV SCH ×2 (03:45→12:02)
[2017-10-24 04:48] LABS: BASOPHILS # (AUTO) 0.1 10^3/uL (0.0-0.1); BASOPHILS % (AUTO) 0.9 %; EOSINOPHILS # (AUTO) 0.3 10^3/uL (0.0-0.7); EOSINOPHILS % (AUTO) 4.4 %; HGB - HEMOGLOBIN 14.2 g/dL (12.0-16.0); LYMPHOCYTES # (AUTO) 2.1 10^3/uL (1.5-3.5); LYMPHOCYTES % (AUTO) 29.7 %; MEAN CORPUSCULAR HEMOGLOBIN 28.4 pg (27.0-31.0); MEAN CORPUSCULAR HGB CONC 32.4 g/dL (32.0-36.0); MEAN CORPUSCULAR VOLUME 87.7 fL (81.0-99.0); MEAN PLATELET VOLUME 9.3 fL (7.9-10.8); MONOCYTES # (AUTO) 0.5 10^3/uL (0.0-1.0); MONOCYTES % (AUTO) 7.1 %; NEUTROPHILS # (AUTO) 4.1 10^3/uL (1.5-6.6); NEUTROPHILS % (AUTO) 57.9 %; PLT - PLATELET COUNT 165 10^3/uL (130-450); RED BLOOD COUNT 4.99 10^6/uL (4.20-5.40); RED CELL DISTRIBUTION WIDTH 14.9 % (12.0-15.0); WHITE BLOOD COUNT 7.1 x10^3/uL (4.8-10.8)
[2017-10-24 04:50] LABS: CALCIUM 8.8 mg/dL (8.5-10.3); CREATININE 0.9 mg/dL (0.4-1.0); MAGNESIUM 1.9 mg/dL (1.7-2.8)
[2017-10-24] MEDS: SODIUM CHLORIDE FLUSH 0.9% 10 ML SYRINGE IVP SCH ×3 (06:18→21:49)
[2017-10-24] MEDS: DABIGATRAN 75 MG CAPSULE PO SCH ×2 (08:54→21:49)
[2017-10-24] MEDS: FAMOTIDINE 20 MG TABLET PO SCH (08:55)
[2017-10-24] MEDS: MULTIVITAMIN TABLET PO SCH (08:55)
[2017-10-24] MEDS: POTASSIUM CHLORIDE 20 MEQ TABLET PO SCH (08:55)
[2017-10-24] MEDS ORDERED: AMIODARONE 360 MG/200 ML 200 ML IV SCH (12:55)
[2017-10-24] MEDS: METOPROLOL TARTRATE 50 MG TABLET PO SCH ×2 (14:21→21:46)
[2017-10-24] MEDS: PROPAFENONE 150 MG TABLET PO SCH ×2 (14:54→21:48)
--- NOTE | 2017-10-24 19:48 | PROVIDER PROGRESS NOTE ---
Assessment/Plan - Problem List (1) Atrial flutter with rapid ventricular response Assessment/Plan: HR still tachycardic and Pt can "feel it" intermittently. Will increase Amio drip back to 1 mg/hr again. Echo shows no drop in LVEF from her last one done several months ago. I tried to reach her Inventory Analyst at [facility] to discuss further management, but was only put on hold. I reviewed the paper instructions that she was given at the last appointment: The instructions indicate that she WAS in Aflutter at that appointment. There were 3 options listed and she was tried with 1) stopping her Rhythmol and starting this current B-america dose that she came in on. The second option was to perform elective cardioversion. The third option was to have an EP study for Ablation. She told me today that she would not want #3. I offered her an option of resuming the old dose of Rhythmol plus this dose of oral B-america, and stopping Amiodarone, but remaining on telemetry to monitor her rate and rhythm. She chose this and will remain on Telemetry but on MedSurg status, off the Amiodarone drip. (2) Navdeep-tachy syndrome Assessment/Plan: S/P pacemaker. HR has been too high to see any demand paced beats, but HR slowing can be pushed , as she will have a back-up rate from her pacing. (3) Hypertension Qualifiers: Assessment/Plan: Still borderline adequate control Will continue to adjust meds. (4) CKD (chronic kidney disease) Assessment/Plan: Stable creat - Current Meds Current Meds: Current Medications Generic Name Dose Route Start Last Admin Trade Name Parris PRN Reason Stop Dose Admin Dabigatran 150 mg 10/23/17 21:00 10/24/17 08:54 Pradaxa PO 150 mg BID MENDEL Administration Famotidine 20 mg 10/24/17 09:00 10/24/17 08:55 Pepcid PO 20 mg DAILY MENDEL Administration Metoprolol Tartrate 150 mg 10/24/17 14:00 10/24/17 14:21 Lopressor PO 150 mg BID MENDEL Administration Multivitamins 1 tab 10/24/17 08:00 10/24/17 08:55 Theragran PO 1 tab DAILYWM MENDEL Administration Potassium Chloride 20 meq 10/24/17 09:00 10/24/17 08:55 K-Dur PO 20 meq DAILY MENDEL Administration Pravastatin Sodium 20 mg 10/23/17 21:00 10/23/17 20:53 Pravachol PO 20 mg QPM MENDEL Administration Propafenone HCl 225 mg 10/24/17 15:00 10/24/17 14:54 Rythmol PO 225 mg TID MENDEL Administration Sodium Chloride 10 ml 10/23/17 22:00 10/24/17 14:55 Normal Saline Flush 0.9% IVP 10 ml Q8HR MENDEL Administration - Lab Result Fish Bone Diagrams: 10/24/17 04:15 10/24/17 04:15 - Additional Planning My Orders: My Active Orders 10/23/17 21:00 Dabigatran [Pradaxa] 150 mg PO BID Pravastatin [Pravachol] 20 mg PO QPM 10/24/17 08:00 Multivitamin [Theragran] 1 tab PO DAILYWM 10/24/17 09:00 Potassium Chloride [K-Dur] 20 meq PO DAILY 10/24/17 14:00 Metoprolol Tartrate [Lopressor] 150 mg PO BID 10/24/17 15:00 Propafenone [Rythmol] 225 mg PO TID 10/24/17 19:30 Transfer [Admit \\ Transfer \\ Status] [RC] .ONCE Subjective - Subjective Patient Reports: Feeling Better, Other (Feels better when HR slower) Nursing Reports: Other (HR was in 110 range overnight, now trending back up to 140.) Objective Vital Signs: Vital Signs - 24 hr 10/23/17 10/23/17 10/23/17 21:48 22:00 23:00 Temperature 36.9 C Heart Rate [ 30 L 113 H 125 H Monitoring electrodes] Respiratory 23 20 20 Rate Blood Pressure Blood Pressure [Right Brachial artery] Blood Pressure 104/84 H 99/86 H 114/73 [Right Radial artery] O2 Saturation 95 92 93 10/24/17 10/24/17 10/24/17 00:00 01:00 02:00 Temperature 36.9 C Heart Rate [ 118 H 114 H 118 H Monitoring electrodes] Respiratory 19 15 17 Rate Blood Pressure Blood Pressure [Right Brachial artery] Blood Pressure 106/91 H 132/93 H 127/101 H [Right Radial artery] O2 Saturation 91 L 93 93 10/24/17 10/24/17 10/24/17 03:00 04:00 05:00 Temperature Heart Rate [ 118 H 127 H 129 H Monitoring electrodes] Respiratory 23 20 18 Rate Blood Pressure Blood Pressure [Right Brachial artery] Blood Pressure 118/86 H 126/90 H 129/96 H [Right Radial artery] O2 Saturation 91 L 94 84 L 10/24/17 10/24/17 10/24/17 06:00 06:56 07:57 Temperature 36.8 C Heart Rate [ 125 H 130 H 87 Monitoring electrodes] Respiratory 17 20 31 H Rate Blood Pressure Blood Pressure [Right Brachial artery] Blood Pressure 125/86 H 124/87 H 92/45 L [Right Radial artery] O2 Saturation 91 L 91 L 86 L 10/24/17 10/24/17 10/24/17 07:58 09:00 10:00 Temperature 36.8 C Heart Rate [ 132 H 134 H 133 H Monitoring electrodes] Respiratory 22 24 25 H Rate Blood Pressure Blood Pressure 135/98 H 132/88 H [Right Brachial artery] Blood Pressure 124/87 H [Right Radial artery] O2 Saturation 94 94 95 10/24/17 10/24/17 10/24/17 11:00 12:00 13:00 Temperature Heart Rate [ 135 H 126 H 123 H Monitoring electrodes] Respiratory 24 24 20 Rate Blood Pressure Blood Pressure 135/91 H 139/99 H 136/87 H [Right Brachial artery] Blood Pressure [Right Radial artery] O2 Saturation 95 95 97 10/24/17 10/24/17 10/24/17 14:16 14:21 15:00 Temperature 37.1 C Heart Rate [ 131 H 132 H Monitoring electrodes] Respiratory 24 22 Rate Blood Pressure 134/93 H Blood Pressure 134/93 H 119/91 H [Right Brachial artery] Blood Pressure [Right Radial artery] O2 Saturation 96 96 10/24/17 10/24/17 10/24/17 16:00 17:00 18:00 Temperature 37.2 C Heart Rate [ 115 H 109 H 109 H Monitoring electrodes] Respiratory 18 26 H 20 Rate Blood Pressure Blood Pressure 127/89 H 137/91 H 133/87 H [Right Brachial artery] Blood Pressure [Right Radial artery] O2 Saturation 95 97 96 Oxygen O2 Source Room air I&O (Last 24 Hrs): Intake and Output Totals x24h 10/22/17 10/23/17 10/24/17 23:59 23:59 23:59 Intake Total 147.756 5716.888 Output Total 2400 1300 Balance -1718.888 192.888 General: Alert, Oriented x3 HEENT: Mucous membr. moist/pink Neck: Supple, No JVD Neuro: Non Focal Cardiovascular: No murmurs, Other (Tachy) Respiratory: No respiratory distress Abdomen: Soft, Other (Obese) Extremities: No edema - Results Results: Laboratory Results WBC 7.1 x10^3/uL (4.8-10.8) 10/24/17 04:15 RBC 4.99 10^6/uL (4.20-5.40) 10/24/17 04:15 Hgb 14.2 g/dL (12.0-16.0) 10/24/17 04:15 Hct 43.7 % (37.0-47.0) 10/24/17 04:15 MCV 87.7 fL (81.0-99.0) 10/24/17 04:15 MCH 28.4 pg (27.0-31.0) 10/24/17 04:15 MCHC 32.4 g/dL (32.0-36.0) 10/24/17 04:15 RDW 14.9 % (12.0-15.0) 10/24/17 04:15 Plt Count 165 10^3/uL (130-450) 10/24/17 04:15 MPV 9.3 fL (7.9-10.8) 10/24/17 04:15 Neut # 4.1 10^3/uL (1.5-6.6) 10/24/17 04:15 Lymph # 2.1 10^3/uL (1.5-3.5) 10/24/17 04:15 Griggs # 0.5 10^3/uL (0.0-1.0) 10/24/17 04:15 Eos # 0.3 10^3/uL (0.0-0.7) 10/24/17 04:15 Baso # 0.1 10^3/uL (0.0-0.1) 10/24/17 04:15 Absolute Nucleated RBC 0.01 x10^3/uL 10/24/17 04:15 Nucleated RBC % 0.1 /100WBC 10/24/17 04:15 Sodium 137 mmol/L (135-145) 10/24/17 04:15 Potassium 3.6 mmol/L (3.5-5.0) 10/24/17 04:15 Chloride 104 mmol/L (101-111) 10/24/17 04:15 Carbon Dioxide 22 mmol/L (21-32) 10/24/17 04:15 Anion Gap 11.0 (6-13) 10/24/17 04:15 BUN 20 mg/dL (6-20) 10/24/17 04:15 Creatinine 0.9 mg/dL (0.4-1.0) 10/24/17 04:15 Estimated GFR (MDRD) 61 (>89) L 10/24/17 04:15 Glucose 113 mg/dL (70-100) H 10/24/17 04:15 Calcium 8.8 mg/dL (8.5-10.3) 10/24/17 04:15 Magnesium 1.9 mg/dL (1.7-2.8) 10/24/17 04:15 Total Bilirubin 0.6 mg/dL (0.2-1.0) 10/23/17 11:48 AST 21 IU/L (10-42) 10/23/17 11:48 ALT 11 IU/L (10-60) 10/23/17 11:48 Alkaline Phosphatase 23 IU/L (42-121) L 10/23/17 11:48 Troponin I < 0.04 ng/mL (<0.49) 10/23/17 20:09 Total Protein 7.6 g/dL (6.7-8.2) 10/23/17 11:48 Albumin 4.1 g/dL (3.2-5.5) 10/23/17 11:48 Globulin 3.5 g/dL (2.1-4.2) 10/23/17 11:48 Albumin/Globulin Ratio 1.2 (1.0-2.2) 10/23/17 11:48 Lipase 25 U/L (22-51) 10/23/17 11:48 Urine Color YELLOW 10/23/17 14:54 Urine Clarity CLEAR (CLEAR) 10/23/17 14:54 Urine pH 6.0 PH (5.0-7.5) 10/23/17 14:54 Ur Specific [place] 1.010 (1.002-1.030) 10/23/17 14:54 Urine Protein NEGATIVE mg/dL (NEGATIVE) 10/23/17 14:54 Urine Glucose (UA) NEGATIVE mg/dL (NEGATIVE) 10/23/17 14:54 Urine Ketones NEGATIVE mg/dL (NEGATIVE) 10/23/17 14:54 Urine Occult Blood NEGATIVE (NEGATIVE) 10/23/17 14:54 Urine Nitrite NEGATIVE (NEGATIVE) 10/23/17 14:54 Urine Bilirubin NEGATIVE (NEGATIVE) 10/23/17 14:54 Urine Urobilinogen 0.2 (NORMAL) E.U./dL (NORMAL) 10/23/17 14:54 Ur Leukocyte Esterase NEGATIVE (NEGATIVE) 10/23/17 14:54 Ur Microscopic Review NOT INDICATED 10/23/17 14:54 Urine Culture Comments NOT INDICATED 10/23/17 14:54 - Procedures Procedures: Procedures EXTRACTION OF ENDOMETRIUM, ENDO (07/14/15) EXTRACTION OF ENDOMETRIUM, ENDO, DIAGN (09/03/17)
[2017-10-24] MEDS: PRAVASTATIN 10 MG TABLET PO SCH (21:46)
[2017-10-25] MEDS: PROPAFENONE 150 MG TABLET PO SCH (06:06)
[2017-10-25] MEDS: SODIUM CHLORIDE FLUSH 0.9% 10 ML SYRINGE IVP SCH (06:10)
[2017-10-25] MEDS: DABIGATRAN 75 MG CAPSULE PO SCH (08:17)
[2017-10-25] MEDS: MULTIVITAMIN TABLET PO SCH (08:17)
[2017-10-25] MEDS: METOPROLOL TARTRATE 50 MG TABLET PO SCH (08:18)
[2017-10-25] MEDS: FAMOTIDINE 20 MG TABLET PO SCH (08:18)
[2017-10-25] MEDS: POTASSIUM CHLORIDE 20 MEQ TABLET PO SCH (08:18)
--- NOTE | 2017-10-25 09:31 | HISTORY & PHYSICAL EXAMINATION ---
DATE OF ADMISSION: 10/23/2017 Physician: Heidi Holguin MD HISTORY OF PRESENT ILLNESS: This is a 77-year-old white female with history of obesity, hypertension and paroxysmal atrial fibrillation; admission here last year for new onset atrial fibrillation, treated with Cardizem and Pradaxa, a repeat admission last year for tachy-navdeep syndrome, requiring transfer for implantation of a permanent pacemaker and management of her atrial fibrillation. The patient now presents with palpitations. She reports that her rhythm medicine was stopped approximately 7-10 days ago by her repair coil winder, and she was put on a higher dose of beta america. Today, she started to have palpitations ,which were her old symptoms when her atrial fibrillation presented. She came to the emergency room and was found to be in atrial flutter with a 2:1 block and heart rate of 140-150. She received IV Cardizem x1, which only decreased her heart rate briefly but caused hypotension to a systolic of 70-80, and this caused chest pressure lasting approximately 50 minutes. The emergency room doctor called her repair coil winder and they discussed the situation, and he advised management with IV amiodarone. PMH: HTN, paroxysmal Afib, Tachy-Navdeep syndrome with a permanent pacemaker for a back-up heart rate, Obesity. ALLERGIES: None Medications: MOV daily, K-Dur 20 mEq shaunna;y, Pradaxa 150 mg bid, Metoprolol Tartrate 150 mg bid. (The Rhythmol 225 mg po bid was stopped about 7 days ago) FH: No inherited diseases. SH: She never smoked, drinks rare alcohol and never used drugs. ROS: A comprehensive review of symptoms was performed and the pertinent positives are in the HPI, the rest are negative. PHYSICAL EXAM: Patient supine in bed, in no acute distress. BP HR 140, regular. HEENT: within normal limits with moist oral mucosa. Neck: No JVD, carotid bruits, thyromegaly or adenopathy. Chest: clear Heart: tachycardic, no murmur. Abdomen: Obese, normal bowel sounds, no tenderness or organomegaly. Extremities: No edema or clubbing. Neurologic: Grossly intact Labs: CBC normal, urinalysis normal, troponon <0.04, BUN 24, creat 1.4, the rest of the CMP is normal. EKG: Atrial flutter with 2:1 block, ventricular rate 140, RBBB. Atrial flutter is a new rhythm since her last EKG done here in Aug 2017. IMPRESSION/DIAGNOSES: 1) Aflutter with rapid ventricular response. It is unclear if A flutter is new or now a chronic rhythm. 2) Tachy-Navdeep syndrome with known previous Afib and recent pacemaker implanted. 3) HTN 4) Obesity 5) Sleep apnea was ruled out only with an overnight oximetry done here on her last adsmission and CAD ruled out with a normal Lexiscan Nuclear stress test done here on her last admission. PLAN: Admit the patient to the ICU on iv Amiodarone, per 3 step protocol of bolus then 1 mg/kg for 6 hours, then 0.5 mg/kg for 18 hours. Cycle troponins to rule out [place] as the cause of this arrhythmia. Obtain an Echo. Continue her oral anticoagulant. Obtain information regarding the Surveillance Supervisor's recent medication changes and plan with respect to Aflutter management. Continue all her other oral medications. DVT Prophylaxis: the patient is already fully anticoagulated on her daily Pradaxa. Code Status: Full Code. ATTESTATION: The patient is expected to be discharged or transferred to another facility within 96 hours: Yes. TD: 10/24/2017 03:57 NAYANA
--- NOTE | 2017-10-25 11:06 | Discharge Plan ---
Discharge Plan Disposition: 01 Home, Self Care Condition: Stable Diet: Low Sodium Activity Restrictions: Activity as Tolerated Shower Restrictions: No Driving Restrictions: No Additional Instructions or Follow Up instructions: Resume your old dose of Rhythmol AND this current dose of Metoprolol Continue all your other medications too No Smoking: If you smoke, Please STOP! Call for help. Follow-up with: Janna Serra MD [Primary Care Provider] -
[2017-10-25 12:01] VITALS: BP 115/72
--- NOTE | 2017-11-09 04:05 | DISCHARGE SUMMARY ---
Physician: Heidi Holguin MD DATE OF ADMISSION: 10/23/2017 DATE OF DISCHARGE: 10/25/2017 This is a 77-year-old, white female with a history of obesity, hypertension, paroxysmal AFib, tachybrady syndrome with a pacemaker that was implanted several months ago. She presented with complaints of palpitations approximately 7 days after her Rythmol medication was discontinued and her beta america dose was increased after a cardiology visit at [facility]. The patient presented in atrial flutter with a rapid ventricular rate of 140. She was placed in the ICU for IV amiodarone to manage her rate and possibly chemically cardiovert. HOSPITAL COURSE AND DISCHARGE DIAGNOSES 1. Atrial flutter with rapid ventricular rate. The patient was given an amiodarone bolus, then a drip at 1 mg/kg for 6 hours, then 0.5 mg/kg for 18 hours, and this produced only a brief slowing of her heart rate into the 120s for the first 6 hours, and then she slowly climbed back to the 140s. She was given an additional 6 hours of the higher dose, and it did not affect any heart rate control. The patient then showed us her report summary from the 09/25/2017 visit with [facility], where there were typed up options provided to her, for managing "Atrial Flutter" including: a. Stopping propafenone and using higher doses of metoprolol to control fast heartbeats for atrial flutter. (This is the option that was implemented on that day). b. Stopping propafenone and adding amiodarone and planning cardioversion, and continuing amiodarone long-term. c. Undergoing atrial flutter ablation, which she told me she did not want and it was "terrifying" to her. Because of the known plan that had been presented to her and having achieved minimal benefit from IV amiodarone for over 24 hours, her propafenone was resumed at 225 mg p.o. b.i.d., along with this recently raised dose of metoprolol. This did provide her with rate control with heart rate in the 90s, but continued underlying atrial flutter. Her Pradaxa was continued throughout the entire hospital stay. She was therefore discharged with her previous propafenone dose and the recently raised metoprolol dose, along with recommendations to see her cooperative extension agent in the next 1-2 weeks. 2. Tachybrady syndrome. In the past visits here, she was in rapid atrial fibrillation, but this admission was entirely in atrial flutter. Also, the patient now has a pacemaker , which would provide her a backup heart rate in case the heart rate slowing medications cause a significant drop in heart rate. 3. Hypertension. The patient's blood pressure was controlled throughout her stay with values of 128/82 and 140/90 at its highest. 4. Chronic kidney disease. The patient's serum creatinine level was 1.4 on admission, and 0.9 at discharge, suggesting possible mild renal insufficiency. LABORATORIES AND IMAGING: Reviewed and summarized above. ALLERGIES: NONE. MEDICATIONS AT DISCHARGE 1. Pradaxa 150 mg p.o. b.i.d. 2. Metoprolol tartrate 150 mg p.o. b.i.d. 3. Multivitamin daily. 4. Potassium chloride 20 mEq p.o. daily. 5. Pravastatin 20 mg p.o. daily. 6. Rythmol 225 mg p.o. t.i.d. CONDITION AT DISCHARGE: Stable. PHYSICAL EXAMINATION AT DISCHARGE VITAL SIGNS: Blood pressure 128/82, pulse of 97, with underlying atrial flutter with a 3:1 block. HEENT: Unremarkable. NECK: No JVD or carotid bruits or thyromegaly. CHEST: Clear. HEART: Heart sounds without murmurs. ABDOMEN: Soft, obese, with a pannus, nontender. EXTREMITIES: Trace pedal edema. No clubbing or cyanosis. NEUROLOGIC: Intact. CODE STATUS: FULL CODE. FOLLOWUP: With her PCP and/or cooperative extension agent in the next 1-4 weeks for further management. ENTIRE TIME REQUIRED FOR COMPLETION OF THIS DISCHARGE: 30 minutes. TD: 11/09/2017 04:04 NAYANA
== END 2017-10-25 12:30 | disposition home or self-care (01) | DRG 310 ==
LOC: EDUNIT# → ED 11:39 → ICU 15:32 → MS2 10-24 20:32
PROVIDERS: ADMIT Internal Medicine; ATTEND Internal Medicine
DX: I48.91 Unspecified atrial fibrillation (principal); I48.0 Paroxysmal atrial fibrillation; I49.5 Sick sinus syndrome; I12.9 Hypertensive chronic kidney disease with stage 1 through stage 4 chronic kidney disease, or unspecified chronic kidney disease; E78.00 Pure hypercholesterolemia, unspecified; N18.9 Chronic kidney disease, unspecified; E66.9 Obesity, unspecified; Z68.34 Body mass index [BMI] 34.0-34.9, adult; M19.90 Unspecified osteoarthritis, unspecified site; L71.9 Rosacea, unspecified; Z96.659 Presence of unspecified artificial knee joint; Z79.01 Long term (current) use of anticoagulants; Z95.0 Presence of cardiac pacemaker
CPT/HCPCS: 36415; 71045; 80048; 80053; 81001; 81003; 83690; 83735; 84484; 85025; 87086; 87150; 93005; 93306; 96374; 99285

== ENCOUNTER 2021-07-05 23:00 | Outpatient (CLI) | payer MEDICARE | END 2021-07-05 23:01 | disposition critical access hospital (66) | LOC: EMS 23:00 | DX: R44.8 Other symptoms and signs involving general sensations and perceptions (principal) | CPT/HCPCS: A0425; A0428 ==

== ENCOUNTER 2021-07-05 23:37 | Emergency (ER) | payer MEDICARE ==
--- NOTE | 2021-07-05 23:55 | ED Physician Documentation ---
History of Present Illness - Stated complaint Stated Complaint: AMS - Chief complaint Chief Complaint: Neuro - History obtained from History obtained from: Patient - Additonal information Additional information: 81yF with pmh afib on pradaxa and metoprolol, hld, psh pacemaker placement 2-3 years ago, p/w paranoid behavior the past couple nights. EMS reports she called police yesterday and today due to delusions that her neighbors were trying to kill her and her cat and that they have surveillance equipment in her home. patient normally lives independently at home alone and drives independently. She has a daughter in law who lives on [facility] named Kimberly. denies SI/HI. states she has been "stressed" and does not see friends or get out much due to the pandemic. does endorse insomnia the past month and a half. denies CP, SOA, n/v, vision changes, confusion, dizziness, fever/chills. Review of Systems Ten Systems: 10 systems reviewed and negative Constitutional: denies: Fever, Chills Cardiac: denies: Chest pain / pressure Respiratory: denies: Dyspnea GI: denies: Abdominal Pain, Nausea : denies: Dysuria, Frequency, Hematuria Psychiatric: reports: Delusions, Insomnia PD PAST MEDICAL HISTORY - Past Medical History Past Medical History: Yes Cardiovascular: Hypertension, High cholesterol, Atrial fibrillation Respiratory: Other Endocrine/Autoimmune: None GI: None SLEEVE TAILOR: None : None HEENT: None Psych: None Musculoskeletal: Osteoarthritis Derm: Rosacea - Past Surgical History Past Surgical History: Yes Ortho: Knee replacement Cardiovascular: Pacemaker HEENT: Tonsil/Adenoidectomy - Present Medications Home Medications: Ambulatory Orders Medication Instructions Recorded Confirmed Pravastatin Sodium 20 mg PO DAILY 07/12/15 07/05/21 Potassium Chloride [K-Dur] 20 meq PO DAILY 07/12/17 07/05/21 Dabigatran [Pradaxa] 150 mg PO BID 08/31/17 07/05/21 Metoprolol Tartrate 150 mg PO BID 08/31/17 07/05/21 Multivitamin [Theragran] 1 tab PO DAILYWM tablet 10/25/17 07/05/21 Propafenone [Rythmol] 225 mg PO TID tablet 10/25/17 dilTIAZem HCL [Diltiazem 24Hr ER 120 mg PO DAILY 07/05/21 07/05/21 (Xr)] - Allergies Allergies/Adverse Reactions: Allergies Allergy/AdvReac Type Severity Reaction Status Date / Time Contrast AdvReac Respiratory Uncoded 07/06/21 02:03 - Social History Does the pt smoke?: No Smoking Status: Never smoker Does the pt drink ETOH?: No Does the pt have substance abuse?: No - Immunizations Immunizations are current?: Yes - POLST Patient has POLST: No POLST Status: Full Code PD ED PE NORMAL - Vitals Vital signs reviewed: Yes - General General: Alert and oriented X 3, No acute distress, Well developed/nourished - HEENT HEENT: Atraumatic, PERRL, EOMI, Moist mucous membranes, Pharynx benign - Neck Neck: Supple, no meningeal sign - Cardiac Cardiac: RRR - Respiratory Respiratory: No respiratory distress, Clear bilaterally - Abdomen Abdomen: Non tender, Non distended - Back Back: No CVA TTP - Derm Derm: Normal color - Extremities Extremities: No deformity - Neuro Neuro: Alert and oriented X 3, utility sales representative 2-12 intact, No motor deficit, No sensory deficit, Normal speech, Other (normal strength and cerebellar testing) - Psych Psych: Other (linear thought process. limited insight re: paranoid thoughts. mood described as "anxious") Results - Vitals Vitals: Vital Signs - 24 hr 07/05/21 07/05/21 07/06/21 23:43 23:49 00:08 Temperature 36.6 C 36.6 C Heart Rate 61 61 60 Respiratory 17 17 16 Rate Blood Pressure 186/88 H 186/88 H 142/80 H O2 Saturation 98 98 97 07/06/21 07/06/21 07/06/21 00:58 01:37 02:04 Temperature Heart Rate 59 L 69 73 Respiratory 15 19 21 Rate Blood Pressure 152/79 H 181/99 H 163/80 H O2 Saturation 98 99 99 07/06/21 07/06/21 07/06/21 02:59 03:45 04:30 Temperature Heart Rate 62 60 60 Respiratory 19 20 18 Rate Blood Pressure 160/70 H 152/92 H 122/68 O2 Saturation 100 98 96 07/06/21 05:35 Temperature Heart Rate 60 Respiratory 19 Rate Blood Pressure 118/67 O2 Saturation 96 Oxygen O2 Source Room air - EKG (time done) 0004 Rate: Rate (enter#) (60) Rhythm: Other (atrial paced rhythm) Intervals: Other (NV 217, QRS 128, qt 458) Ischemia: Other (lateral TWI) - Labs Labs: Laboratory Tests 07/05/21 07/05/21 07/05/21 12:00 12:00 23:58 WBC RBC Hgb Hct MCV MCH MCHC RDW Plt Count MPV Neut # (Auto) Lymph # (Auto) Isabela # (Auto) Eos # (Auto) Baso # (Auto) Absolute Nucleated RBC Nucleated RBC % Sodium 138 Potassium 4.1 Chloride 99 L Carbon Dioxide 25 Anion Gap 14.0 H BUN 24 H Creatinine 1.0 Estimated GFR (MDRD) 53 L Glucose 160 H Calcium 9.7 Total Bilirubin 0.7 AST 24 ALT 14 Alkaline Phosphatase 24 L Total Protein 8.2 Albumin 4.2 Globulin 4.0 Albumin/Globulin Ratio 1.1 Lipase 37 TSH 4.77 Urine Color YELLOW Urine Clarity CLEAR Urine pH 5.0 Ur Specific Crawford >=1.030 H Urine Protein NEGATIVE Urine Glucose (UA) NEGATIVE Urine Ketones TRACE Urine Occult Blood MODERATE H Urine Nitrite NEGATIVE Urine Bilirubin NEGATIVE Urine Urobilinogen 0.2 (NORMAL) Ur Leukocyte Esterase NEGATIVE Urine RBC 6-10 H Urine WBC 0-3 Ur Squamous Epith Cells FEW Squamous Urine Crystals 11-25 Ca Oxalate Urine Bacteria Rare Urine Casts 6-10 Hyaline Casts Ur Microscopic Review INDICATED Urine Culture Comments NOT INDICATED Salicylates < 6.0 Urine Opiates Screen NEGATIVE Ur Oxycodone Screen NEGATIVE Urine Methadone Screen NEGATIVE Ur Propoxyphene Screen NEGATIVE Acetaminophen < 10 L Ur Barbiturates Screen NEGATIVE Ur Tricyclics Screen NEGATIVE Ur Phencyclidine Scrn NEGATIVE Ur Amphetamine Screen NEGATIVE U Methamphetamines Scrn POSITIVE H U Benzodiazepines Scrn NEGATIVE Urine Cocaine Screen NEGATIVE U Cannabinoids Screen NEGATIVE Ethyl Alcohol < 5.0 07/06/21 00:12 WBC 9.2 RBC 5.65 H Hgb 16.1 H Hct 51.3 H MCV 90.8 MCH 28.5 MCHC 31.4 L RDW 13.9 Plt Count 220 MPV 9.7 Neut # (Auto) 5.7 Lymph # (Auto) 2.4 Isabela # (Auto) 0.6 Eos # (Auto) 0.4 Baso # (Auto) 0.1 Absolute Nucleated RBC 0.00 Nucleated RBC % 0.0 Sodium Potassium Chloride Carbon Dioxide Anion Gap BUN Creatinine Estimated GFR (MDRD) Glucose Calcium Total Bilirubin AST ALT Alkaline Phosphatase Total Protein Albumin Globulin Albumin/Globulin Ratio Lipase TSH Urine Color Urine Clarity Urine pH Ur Specific Crawford Urine Protein Urine Glucose (UA) Urine Ketones Urine Occult Blood Urine Nitrite Urine Bilirubin Urine Urobilinogen Ur Leukocyte Esterase Urine RBC Urine WBC Ur Squamous Epith Cells Urine Crystals Urine Bacteria Urine Casts Ur Microscopic Review Urine Culture Comments Salicylates Urine Opiates Screen Ur Oxycodone Screen Urine Methadone Screen Ur Propoxyphene Screen Acetaminophen Ur Barbiturates Screen Ur Tricyclics Screen Ur Phencyclidine Scrn Ur Amphetamine Screen U Methamphetamines Scrn U Benzodiazepines Scrn Urine Cocaine Screen U Cannabinoids Screen Ethyl Alcohol PD MEDICAL DECISION MAKING - ED course ED course: collateral info obtained from daughter in law Kimberly (nearest family on [place]) - Her son Michael and nephew both visited in April and didn't find any unusual behavior. Her brother who is 82 has severe dementia. Her mother had dementia so she has a family history. Deputy Jean told Kimberly that the patient said her nei ghbors were trying to break in and kill her and her cat and were wearing a cowboy hat and yelling wildly. Last night around 11pm she also called 911 and had a bag packed, her coat on, and her purse ready and asked them, "Please take me to Kimberly's house". Kimberly was unable to take her "because there isn't room" and she ended up going to sleep in her own home, but then called 911 again tonight. Daughter in law is requesting we keep her here [facility] for medical and mental health workup. Note that patient appeared flushed and was wheezing on return from CT. Stating that she felt SOA and dizzy in scanner but is now feeling better. Placed on 2L nc oxygen. 50mg IV benadryl given and 125 solumedrol IV. Significant improvement in wheezing and facial flush. Patient endorsed to shaista Giles MD. patient awaiting marciano given delusions.
[2021-07-06 00:17] LABS: MUDS CUTOFF CONCENTRATIONS CUTOFF CONC BELOW:
[2021-07-06 00:17] LABS: BASOPHILS # (AUTO) 0.1 10^3/uL (0.0-0.1); BASOPHILS % (AUTO) 0.7 %; EOSINOPHILS # (AUTO) 0.4 10^3/uL (0.0-0.7); EOSINOPHILS % (AUTO) 4.3 %; HCT - HEMATOCRIT 51.3 % (37.0-47.0); HGB - HEMOGLOBIN 16.1 g/dL (12.0-16.0); LYMPHOCYTES # (AUTO) 2.4 10^3/uL (1.5-3.5); LYMPHOCYTES % (AUTO) 26.1 %; MEAN CORPUSCULAR HEMOGLOBIN 28.5 pg (27.0-31.0); MEAN CORPUSCULAR HGB CONC 31.4 g/dL (32.0-36.0); MEAN CORPUSCULAR VOLUME 90.8 fL (81.0-99.0); MEAN PLATELET VOLUME 9.7 fL (7.9-10.8); MONOCYTES # (AUTO) 0.6 10^3/uL (0.0-1.0); NEUTROPHILS # (AUTO) 5.7 10^3/uL (1.5-6.6); NEUTROPHILS % (AUTO) 61.7 %; PLT - PLATELET COUNT 220 10^3/uL (130-450); RED BLOOD COUNT 5.65 10^6/uL (4.20-5.40); RED CELL DISTRIBUTION WIDTH 13.9 % (12.0-15.0); WHITE BLOOD COUNT 9.2 x10^3/uL (4.8-10.8)
[2021-07-06 00:21] LABS: BILIRUBIN,URINE NEGATIVE (NEGATIVE); GLUCOSE, URINE (UA) NEGATIVE (NEGATIVE); KETONES,URINE (UA) TRACE mg/dL (NEGATIVE); LEUKOCYTE ESTERASE, URINE NEGATIVE (NEGATIVE); NITRITE,URINE NEGATIVE (NEGATIVE); OCCULT BLOOD,URINE MODERATE (NEGATIVE); PROTEIN,URINE NEGATIVE (NEGATIVE); UROBILINOGEN,URINE 0.2 (NORMAL) E.U./dL (NORMAL)
[2021-07-06 00:25] LABS: CLARITY,URINE CLEAR (CLEAR)
[2021-07-06 00:29] LABS: SQUAMOUS EPITHELIAL CELL,UR FEW Squamous (<= Few); WBC,URINE 0-3 /HPF (0-5)
[2021-07-06 00:30] LABS: BACTERIA,URINE Rare /HPF (None Seen); CASTS, URINE 6-10 Hyaline Casts /LPF; CRYSTALS,URINE 11-25 Ca Oxalate /LPF
[2021-07-06 00:31] LABS: AMPHETAMINE SCREEN,URINE NEGATIVE (NEGATIVE); BARBITURATE SCREEN,UR NEGATIVE (NEGATIVE); BENZODIAZEPINES SCREEN, URINE NEGATIVE (NEGATIVE); COCAINE SCREEN URINE NEGATIVE (NEGATIVE); METHADONE SCREEN, URINE NEGATIVE (NEGATIVE); METHAMPHETAMINES SCREEN, URINE POSITIVE (NEGATIVE); OPIATE SCREEN, URINE NEGATIVE (NEGATIVE); OXYCODONE SCREEN, URINE NEGATIVE (NEGATIVE); PROPOXYPHENE SCREEN, URINE NEGATIVE (NEGATIVE); THC CANNABINOID SCREEN, URINE NEGATIVE (NEGATIVE); TRICYCLIC ANTIDEPRESSANT,URINE NEGATIVE (NEGATIVE)
[2021-07-06 00:44] LABS: ACETAMINOPHEN < 10 ug/mL (10-30); ALBUMIN 4.2 g/dL (3.2-5.5); ALBUMIN/GLOBULIN RATIO 1.1 (1.0-2.2); ALKALINE PHOSPHATASE 24 IU/L (42-121); ALT ALANINE AMINOTRANSFERASE 14 IU/L (10-60); AST ASPARTATE AMINOTRANSFERASE 24 IU/L (10-42); BILIRUBIN,TOTAL 0.7 mg/dL (0.2-1.0); BUN - BLOOD UREA NITROGEN 24 mg/dL (6-20); CALCIUM 9.7 mg/dL (8.5-10.3); CARBON DIOXIDE - CO2 25 mmol/L (21-32); CHLORIDE 99 mmol/L (101-111); ETOH - ETHANOL < 5.0 mg/dL; GFR - MDRD 53 (>89); GLUCOSE 160 mg/dL (70-100); LIPASE 37 U/L (22-51); POTASSIUM 4.1 mmol/L (3.5-5.0); SALICYLATE < 6.0 mg/dL; SODIUM 138 mmol/L (135-145); TOTAL PROTEIN 8.2 g/dL (6.7-8.2)
[2021-07-06] MEDS ORDERED: IOVERSOL 320 100 ML VIAL IVP ONE ×2 (01:01→01:29)
--- NOTE | 2021-07-06 01:03 | CT Report ---
PROCEDURE: HEAD WO INDICATIONS: paranoid behavior TECHNIQUE: Noncontrast 4.5 mm thick angled axial sections acquired from the foramen magnum to the vertex. For r adiation dose reduction, the following was used: automated exposure control, adjustment of mA and/or kV according to patient size. COMPARISON: None. FINDINGS: Image quality: Excellent. CSF spaces: Basal cisterns are patent. No extra-axial fluid collections. Ventricles are normal in size and shape. Brain: No midline shift. No intracranial masses or hemorrhage. There is age-related volume loss. Gr ay-white matter interface is normal. Skull and face: Calvarium and visualized facial bones are intact, without suspicious lesions. Sinuses: Visualized sinuses and mastoids are clear. IMPRESSION: No acute intracranial abnormality. Reviewed by: Jeramie Otto on 07/06/2021 1:02 AM PDT Approved by: Jeramie Otto on 07/06/2021 1:02 AM PDT Station ID: [id number]
[2021-07-06] MEDS ORDERED: SODIUM CHLORIDE 0.9% 1,000 ML IV STA (01:10)
[2021-07-06] MEDS ORDERED: diphenhydrAMINE INJ 50 MG/ML VIAL ONE (01:28)
[2021-07-06] MEDS ORDERED: diphenhydrAMINE INJ 50 MG/ML VIAL IVP STA (01:29)
[2021-07-06] MEDS ORDERED: methylPREDNISolone SUCCINATE 125 MG/2 ML VIAL IVP STA (01:30)
--- NOTE | 2021-07-06 01:50 | CT Report ---
PROCEDURE: Abdomen/Pelvis W INDICATIONS: hematuria, AMS CONTRAST: IV CONTRAST: Optiray 320 ml: 100 PO CONTRAST: *NO PO CONTRAST TECHNIQUE: After the administration of contrast, 5 mm thick sections acquired from the diaphragms to the sym physis. 5 mm thick coronal and sagittal reformats were acquired. For radiation dose reduction, the following was used: automated exposure control, adjustment of mA and/or kV according to patient size . COMPARISON: None. FINDINGS: Image quality: Excellent. ABDOMEN: Lung bases: Lung bases are clear. Heart size is normal. Solid organs: Liver and spleen are normal in size and enhancement. Gallbladder contains multiple st ones. Biliary system is non dilated. Pancreas enhances normally. No adrenal nodules. Kidneys demo nstrate normal size and enhancement, without hydronephrosis. The left kidney has a 2.3 cm cyst. Peritoneum and bowel: Bowel loops demonstrate normal wall thickness and caliber. There is a small h iatal hernia. No free fluid or air. Nodes and vessels: No retroperitoneal or mesenteric adenopathy by size criteria. Aorta and inferior vena cava are normal in size. Miscellaneous: No ventral hernias. PELVIS: Genitourinary: Bladder wall thickness is normal. The uterus has a fibroid appearance with hypodense fibroids and calcified fibroids. Miscellaneous: No inguinal hernias or adenopathy. Bones: No suspicious bony lesions. No vertebral body compression fractures. IMPRESSION: 1. No acute abdominal or pelvic abnormality. 2. Hiatal hernia. 3. Fibroid uterus. 4. No kidney stones. Reviewed by: Jeramie Otto on 07/06/2021 1:48 AM PDT Approved by: Jeramie Otto on 07/06/2021 1:48 AM PDT Station ID: [id number]
[2021-07-06 05:35] VITALS: BP 118/67
--- NOTE | 2021-07-17 23:52 | ED Physician Documentation ---
ED Addendum - Addendum Addendum: 07/17/21 23:50Social WOrker met with patient and talked with her and family members. They will be looking at Respite Care or placemnt at [facility] in [place]. SW found that there are spaces available. Family will merchandise pickup/receiving associate patient and watch her at home until finalized placement in [facility]. Diagnosis: dementia anxiety Disposition: discharged home in stable condition with family members
== END 2021-07-06 12:20 | disposition home or self-care (01) ==
LOC: EDUNIT# → ED 23:37
DX: F03.90 Unspecified dementia, unspecified severity, without behavioral disturbance, psychotic disturbance, mood disturbance, and anxiety (principal); F41.9 Anxiety disorder, unspecified; I10 Essential (primary) hypertension; I48.91 Unspecified atrial fibrillation; Z95.0 Presence of cardiac pacemaker
CPT/HCPCS: 36415; 70450; 74177; 80053; 80306; 80307; 81001; 83690; 84443; 85025; 93005; 96374; 96375; 99283; 99284; G0480; J1200; Q9967; 80320; 80329; 81003; 87086

== ENCOUNTER 2022-07-17 08:00 | Outpatient (CLI) | payer MEDICARE ==
[2022-07-17 18:15] LABS: BASOPHILS # (AUTO) 0.1 10^3/uL (0.0-0.1); BASOPHILS % (AUTO) 0.7 %; EOSINOPHILS # (AUTO) 0.5 10^3/uL (0.0-0.7); EOSINOPHILS % (AUTO) 6.7 %; HGB - HEMOGLOBIN 14.5 g/dL (12.0-16.0); LYMPHOCYTES # (AUTO) 2.2 10^3/uL (1.5-3.5); LYMPHOCYTES % (AUTO) 33.3 %; MEAN CORPUSCULAR HEMOGLOBIN 27.7 pg (27.0-31.0); MEAN CORPUSCULAR HGB CONC 31.5 g/dL (32.0-36.0); MEAN CORPUSCULAR VOLUME 87.8 fL (81.0-99.0); MONOCYTES # (AUTO) 0.6 10^3/uL (0.0-1.0); MONOCYTES % (AUTO) 8.5 %; NEUTROPHILS # (AUTO) 3.4 10^3/uL (1.5-6.6); NEUTROPHILS % (AUTO) 50.5 %; PLT - PLATELET COUNT 242 10^3/uL (130-450); RED BLOOD COUNT 5.24 10^6/uL (4.20-5.40); RED CELL DISTRIBUTION WIDTH 14.5 % (12.0-15.0); WHITE BLOOD COUNT 6.7 x10^3/uL (4.8-10.8)
[2022-07-17 18:34] LABS: CALCIUM 9.1 mg/dL (8.5-10.3); POTASSIUM 3.6 mmol/L (3.5-5.0)
[2022-07-17 21:47] LABS: ESTIMATED AVERAGE GLUCOSE 131 mg/dL (70-100); HEMOGLOBIN A1c% 6.2 % (4.27-6.07)
== END 2022-07-17 23:59 | disposition home or self-care (01) ==
LOC: LAB.R 08:00
PROVIDERS: ATTEND Internal Medicine
DX: Z01.818 Encounter for other preprocedural examination (principal); I10 Essential (primary) hypertension; I48.91 Unspecified atrial fibrillation; E78.5 Hyperlipidemia, unspecified; R73.9 Hyperglycemia, unspecified
CPT/HCPCS: 80048; 83036; 85025

== ENCOUNTER 2023-03-26 09:32 | Outpatient (CLI) | payer MEDICARE ==
--- NOTE | 2023-03-26 15:16 | XRAY Report ---
PROCEDURE Knee 3 View LT INDICATIONS: LEFT KNEE PAIN TECHNIQUE: 3 views of the left knee(s) were acquired. COMPARISON: None. FINDINGS: Bones: No fractures or dislocations. No suspicious bony lesions. Generalized decreased osseous mine ralization present. Total knee arthroplasty in good position Soft tissues: No knee joint effusion. No suspicious soft tissue calcifications or masses. IMPRESSION: Total knee arthroplasty in good position without evidence of fracture or hardware failure Osteopenia Reviewed by: Jim Perdomo MD on 03/26/2023 2:14 PM AKMARIA LUISA Approved by: Jim Perdomo MD on 03/26/2023 2:14 PM AKDT Station ID: [id number]
== END 2023-03-26 09:33 | disposition home or self-care (01) ==
LOC: DI.S 09:32
PROVIDERS: ATTEND Internal Medicine
DX: M25.562 Pain in left knee (principal); Z96.652 Presence of left artificial knee joint

== ENCOUNTER 2023-08-01 10:38 | Outpatient (CLI) | payer MEDICARE | END 2023-08-01 10:39 | disposition critical access hospital (66) | LOC: EMS 10:38 | DX: R11.2 Nausea with vomiting, unspecified (principal); R61 Generalized hyperhidrosis; R42 Dizziness and giddiness | CPT/HCPCS: A0425; A0427 ==

== ENCOUNTER 2023-08-01 11:07 | Emergency (ER) | payer MEDICARE ==
[2023-08-01] MEDS ORDERED: SODIUM CHLORIDE 0.9% 1,000 ML IV STA (11:36)
[2023-08-01] MEDS ORDERED: ONDANSETRON 4 MG/2 ML VIAL IVP STA (11:36)
--- NOTE | 2023-08-01 11:41 | ED Physician Documentation ---
History of Present Illness - Stated complaint Stated Complaint: N/V DIZZY - Chief complaint Chief Complaint: General - Additonal information Additional information: 83-year-old female who does have a baseline history of dementia presents to the emergency department for evaluation of nausea, vomiting dizziness and now diarrhea. Symptoms began Sunday evening. She reports that she cooked a pot pie at home and when she began eating it it did not taste quite right. However she had a few bites and decided not to pursue it anymore. Later in the evening she woke up and had an upset stomach. She sat up and states she felt very dizzy and off-balance. It took some time and she was able to get into the restroom where she vomited. She went back to sleep. The next morning she had similar though improving symptoms. The dizziness is mostly only present when she changes positions. She denies any falls. Yesterday evening and this morning she had some watery nonbloody stools. Past medical history includes dementia, hypertension, atrial fibrillation on Pradaxa as well as type 2 diabetes on metformin. Meds: Pradaxa, metoprolol, donepezil, metformin, amlodipine Review of Systems Constitutional: denies: Fever Throat: reports: Reviewed and negative Cardiac: reports: Reviewed and negative Respiratory: denies: Dyspnea, Cough GI: reports: Nausea, Vomiting, Diarrhea : reports: Reviewed and negative Skin: reports: Reviewed and negative Musculoskeletal: reports: Reviewed and negative PD PAST MEDICAL HISTORY - Past Medical History Past Medical History: Yes Cardiovascular: Hypertension, Atrial fibrillation Respiratory: None Neuro: Alzhiemer's Endocrine/Autoimmune: Type 2 diabetes GI: None FARM LABORER: None : None HEENT: None Psych: None Musculoskeletal: None Derm: None - Past Surgical History Past Surgical History: Yes Ortho: Knee replacement Cardiovascular: Pacemaker HEENT: Tonsil/Adenoidectomy - Present Medications Home Medications: Ambulatory Orders Medication Instructions Recorded Confirmed Pravastatin Sodium 20 mg PO DAILY 07/12/15 08/01/23 Dabigatran [Pradaxa] 150 mg PO BID 08/31/17 08/01/23 Metoprolol Tartrate 150 mg PO BID 08/31/17 08/01/23 Ondansetron Odt [Zofran] 4 mg TL Q6H PRN #10 tablet 08/01/23 - Allergies Allergies/Adverse Reactions: Allergies Allergy/AdvReac Type Severity Reaction Status Date / Time Contrast AdvReac Respiratory Uncoded 08/01/23 11:23 - Social History Does the pt smoke?: No Smoking Status: Never smoker Does the pt drink ETOH?: No Does the pt have substance abuse?: No - Immunizations Immunizations are current?: Yes - POLST Patient has POLST: No POLST Status: Full Code PD ED PE NORMAL - General General: Alert and oriented X 3, No acute distress, Well developed/nourished - HEENT HEENT: Atraumatic, Moist mucous membranes - Neck Neck: Supple, no meningeal sign - Cardiac Cardiac: RRR, No murmur - Respiratory Respiratory: No respiratory distress, Clear bilaterally - Abdomen Abdomen: Normal bowel sounds, Soft, Non tender - Back Back: No CVA TTP - Derm Derm: Normal color, Warm and dry - Extremities Extremities: No deformity - Neuro Neuro: Alert and oriented X 3, senior sales manager 2-12 intact, No motor deficit, No sensory deficit, Normal speech Eye Opening: Spontaneous Motor: Obeys Commands Verbal: Oriented GCS Score: 15 Results - Vitals Vitals: Vital Signs - 24 hr 08/01/23 08/01/23 11:08 11:37 Temperature 36.4 C L Heart Rate 60 Heart Rate [ 63 Sitting] Heart Rate [ 66 Standing] Heart Rate [ 60 Supine] Respiratory 13 Rate Blood Pressure 124/72 Blood Pressure 116/67 [Sitting] Blood Pressure 109/68 [Standing] Blood Pressure 124/72 [Supine] O2 Saturation 97 Oxygen O2 Source Room air - EKG (time done) 1150 EKG releavant findings:: EKG personally interpreted by author of this note. Relevant findings are: Rate: Rate (enter#) (62) Rhythm: Paced (atrial pacing ) Intervals: Normal MI. No: Prolonged QT Ischemia: T wave inversion (v2-6 unchanged from previous) Compare to prior EKG: Unchanged from prior EKG Computer interpretation: Agree with computer - Labs Labs: Laboratory Tests 08/01/23 08/01/23 12:40 12:40 WBC 8.7 RBC 4.70 Hgb 13.8 Hct 43.2 MCV 91.9 MCH 29.4 MCHC 31.9 L RDW 14.1 Plt Count 199 MPV 9.2 Neut # (Auto) 5.6 Lymph # (Auto) 2.2 Alpine # (Auto) 0.7 Eos # (Auto) 0.2 Baso # (Auto) 0.0 Absolute Nucleated RBC 0.00 Nucleated RBC % 0.0 Sodium 142 Potassium 3.3 L Chloride 104 Carbon Dioxide 32 Anion Gap 6.0 BUN 10 Creatinine 0.8 Estimated GFR (MDRD) 69 L Glucose 90 Calcium 9.0 Total Bilirubin 0.6 AST 19 ALT 7 L Alkaline Phosphatase 21 L Total Protein 6.9 Albumin 3.9 Globulin 3.0 Albumin/Globulin Ratio 1.3 Lipase 33 - Rads (name of study) cxr Relevant Findings:: Final report received (no acute cardiopulmonary process) CT head Relevant Findings:: Final report received (no acute intrcranial process) PD Medical Decision Making - ED course Complexity details: reviewed results, re-evaluated patient, considered differential, d/w patient ED course: 83-year-old female who does have a history of early dementia, hypertension, diabetes and A-fib anticoagulated on Pradaxa presents the emergency department for evaluation of nausea and dizziness. Symptoms began Sunday evening after she ate a pot pie that she describes as bad tasting. Over the last 3 days the symptoms have steadily improved including the nausea and vomiting though this morning she did have some diarrhea. She contacted her primary care office who advised her to come to the ER. Presentation to the emergency department she is alert oriented and very well- appearing. She does show an atrially paced rhythm on the monitor. She is normotensive without fevers. She had no focal neurodeficits. Labs were obtained which showed normal white count and hemoglobin. Very mild electrolyte derangement with potassium of 3.3. This is likely owing to the vomiting and the diarrhea. Here in the emergency department she was given some IV fluids and Zofran and on reevaluation feels markedly improved. She was able to ambulate easily in the hallway using her cane at baseline. CT of the head showed no intracerebral findings. Clinically I suspect the patient has a mild gastroenteritis after eating the questionable food. Clinically I am not suspicious of ACS or stroke. She is discharged home with recommendation to use the Zofran as needed and simple foods over the next 24 to 48 hours. Will follow with her PCP. The usual emergent return precautions for failure symptoms resolve was discussed. Departure - Departure Disposition: Home, Self Care Clinical Impression: Dizziness Nausea and vomiting Qualifiers: Vomiting type: unspecified Qualified Code(s): R11.2 - Nausea with vomiting, unspecified Prescriptions: Ondansetron Odt [Zofran] 4 mg TL Q6H PRN #10 tablet PRN Reason: Nausea / Vomiting Comments: Era bhardwaj are seen today in the emergency department after you have had some nausea, vomiting diarrhea and dizziness that began Sunday evening after you ate some food that you suspect may not have been safe. Over the last several days her symptoms have improved. Here in the emergency department your vital signs were normal. We did obtain some routine screening labs that did not show any worrisome abnormalities. Your chest x-ray was normal for age. The CT of your head did not show any worrisome abnormalities or bruising or bleeding within the brain. Here in the emergency department you did receive some IV fluids as well as nausea medication called Zofran and you are feeling better. I suspect over the neck several days her symptoms will continue to just gently improve. I sent a prescription for Zofran to the [facility] in [place]. You are encouraged to use this 2-3 times a day for nausea. Frequent sips of clear liquids as well as small bites of simple foods such as bananas, rice, applesauce and toast. Follow closely with your primary care doctor. Return to the ER for any new or worsening symptoms. Forms: PCP List NIHSS - Time Time: 11:30 - Level of Consciousness Level of consciousness: (0) Alert, Keenly responsive LOC Questions: (0) Answers both Q's correct LOC Commands: (0) Performs both correctly - Gaze Best Gaze: (0) Normal - Visual Visual: (0) No loss - Facial Palsy Facial Palsy: (0) Normal, symmetrical movement - Motor Arms (both separate) Motor Arm (right): (0) No drift Motor Arm (left): (0) No drift - Motor Legs (both separate) Motor Leg (right): (0) No drift Motor Leg (left): (0) No drift - Limb Ataxia Limb Ataxia: (0) Absent - Sensory Sensory: (0) Normal - Best Language Best Language: (0) No aphasia - Dysarthria Dysarthria: (0) Normal - Extinction and Inattention (formally neg Extinction and inattention: (0) No abnormality - Total Score/Results Total Score/Result: 0
--- NOTE | 2023-08-01 11:53 | XRAY Report ---
PROCEDURE: Chest 1 View X-Ray INDICATIONS: Chest Pain TECHNIQUE: One view of the chest was acquired. COMPARISON: None. FINDINGS: Surgical changes and devices: Left-sided pacer. Lungs and pleura: No pleural effusions or pneumothorax. Lungs are clear. Mediastinum: Mediastinal contours appear normal. Heart size is normal. Bones and chest wall: No suspicious bony lesions. Overlying soft tissues appear unremarkable. IMPRESSION: No acute process. Reviewed by: Kristina Gauthier MD on 08/01/2023 11:51 AM [facility] Approved by: Kristina Gauthier MD on 08/01/2023 11:51 AM [facility] Station ID: [id number]
[2023-08-01 12:46] LABS: BASOPHILS % (AUTO) 0.3 %; EOSINOPHILS # (AUTO) 0.2 10^3/uL (0.0-0.7); EOSINOPHILS % (AUTO) 2.1 %; HCT - HEMATOCRIT 43.2 % (37.0-47.0); HGB - HEMOGLOBIN 13.8 g/dL (12.0-16.0); LYMPHOCYTES # (AUTO) 2.2 10^3/uL (1.5-3.5); LYMPHOCYTES % (AUTO) 24.8 %; MEAN CORPUSCULAR HEMOGLOBIN 29.4 pg (27.0-31.0); MEAN CORPUSCULAR HGB CONC 31.9 g/dL (32.0-36.0); MEAN CORPUSCULAR VOLUME 91.9 fL (81.0-99.0); MEAN PLATELET VOLUME 9.2 fL (7.9-10.8); MONOCYTES # (AUTO) 0.7 10^3/uL (0.0-1.0); MONOCYTES % (AUTO) 7.7 %; NEUTROPHILS # (AUTO) 5.6 10^3/uL (1.5-6.6); NEUTROPHILS % (AUTO) 64.9 %; PLT - PLATELET COUNT 199 10^3/uL (130-450); RED CELL DISTRIBUTION WIDTH 14.1 % (12.0-15.0); WHITE BLOOD COUNT 8.7 x10^3/uL (4.8-10.8)
[2023-08-01 13:13] LABS: ALBUMIN 3.9 g/dL (3.2-5.5); ALBUMIN/GLOBULIN RATIO 1.3 (1.0-2.2); BILIRUBIN,TOTAL 0.6 mg/dL (0.2-1.0); CREATININE 0.8 mg/dL (0.6-1.3); POTASSIUM 3.3 mmol/L (3.5-4.5); TOTAL PROTEIN 6.9 g/dL (6.4-8.9)
--- NOTE | 2023-08-01 13:13 | CT Report ---
PROCEDURE: HEAD WO INDICATIONS: dizzy, anticoagulated TECHNIQUE: Noncontrast 4.5 mm thick angled axial sections acquired from the foramen magnum to the vertex. For r adiation dose reduction, the following was used: automated exposure control, adjustment of mA and/or kV according to patient size. COMPARISON: CTA head 07/06/2021. FINDINGS: Image quality: Excellent. The ventricular system and cortical sulci demonstrate atrophy, consistent for patient's stated age. There are areas of hypodensity in the periventricular and subcortical white matter. There is no acut e intra or extra-axial fluid collection. No acute hemorrhage, mass lesion or midline shift. Brainst em is unremarkable. Globes are symmetrical. Sinuses demonstrate scattered areas of mucosal thickening without fluid level s. Osseous structures are intact. IMPRESSION: 1. No acute intracranial process. 2. Moderate atrophy and chronic microvascular ischemic changes. Reviewed by: Debbie Page MD on 08/01/2023 1:[address] [facility] Approved by: Debbie Page MD on 08/01/2023 1:11 PM PST Station ID: [id number]
[2023-08-01 14:39] VITALS: BP 124/62; O2SAT 99
== END 2023-08-01 14:34 | disposition home or self-care (01) ==
LOC: EDUNIT# → ED 11:07
DX: R11.2 Nausea with vomiting, unspecified (principal); R42 Dizziness and giddiness; I10 Essential (primary) hypertension; I48.91 Unspecified atrial fibrillation; G30.9 Alzheimer's disease, unspecified; F02.80 Dementia in other diseases classified elsewhere, unspecified severity, without behavioral disturbance, psychotic disturbance, mood disturbance, and anxiety; E11.9 Type 2 diabetes mellitus without complications; Z79.01 Long term (current) use of anticoagulants; Z79.84 Long term (current) use of oral hypoglycemic drugs; Z79.899 Other long term (current) drug therapy
CPT/HCPCS: 36415; 80053; 83690; 85025; 93005; 96374; 99284

== ENCOUNTER 2024-09-13 13:07 | Observation (INO) ==
[2024-09-13 13:53] LABS: BASOPHILS # (AUTO) 0.1 10^3/uL (0.0-0.1); BASOPHILS % (AUTO) 0.5 %; EOSINOPHILS # (AUTO) 0.2 10^3/uL (0.0-0.7); EOSINOPHILS % (AUTO) 1.8 %; HGB - HEMOGLOBIN 14.5 g/dL (12.0-16.0); LYMPHOCYTES % (AUTO) 18.5 %; MEAN CORPUSCULAR HEMOGLOBIN 29.2 pg (27.0-31.0); MEAN CORPUSCULAR HGB CONC 32.2 g/dL (32.0-36.0); MEAN CORPUSCULAR VOLUME 90.5 fL (81.0-99.0); MEAN PLATELET VOLUME 10.2 fL (7.9-10.8); MONOCYTES # (AUTO) 0.7 10^3/uL (0.0-1.0); MONOCYTES % (AUTO) 6.7 %; NEUTROPHILS # (AUTO) 7.8 10^3/uL (1.5-6.6); PLT - PLATELET COUNT 207 10^3/uL (130-450); RED BLOOD COUNT 4.97 10^6/uL (4.20-5.40); RED CELL DISTRIBUTION WIDTH 14.1 % (12.0-15.0); WHITE BLOOD COUNT 10.9 x10^3/uL (4.8-10.8)
[2024-09-13] MEDS: SODIUM CHLORIDE 0.9% 1,000 ML IV SCH (14:00)
[2024-09-13 14:05] LABS: ALBUMIN 3.7 g/dL (3.2-5.5); ALBUMIN/GLOBULIN RATIO 1.2 (1.0-2.2); BILIRUBIN,TOTAL 1.3 mg/dL (0.2-1.0); CALCIUM 9.2 mg/dL (8.5-10.3); CREATININE 0.9 mg/dL (0.6-1.3); POTASSIUM 3.5 mmol/L (3.5-4.5); TOTAL PROTEIN 6.8 g/dL (6.4-8.9)
[2024-09-13 14:08] LABS: BILIRUBIN,URINE MODERATE (NEGATIVE); GLUCOSE, URINE (UA) NEGATIVE (NEGATIVE); KETONES,URINE (UA) 15 mg/dL (NEGATIVE); LEUKOCYTE ESTERASE, URINE NEGATIVE (NEGATIVE); NITRITE,URINE NEGATIVE (NEGATIVE); OCCULT BLOOD,URINE TRACE-INTA (NEGATIVE); PH,URINE 5.5 PH (5.0-7.5); PROTEIN,URINE TRACE mg/dL (NEGATIVE); UROBILINOGEN,URINE 1 (NORMAL) E.U./dL (NORMAL)
[2024-09-13 14:09] LABS: CLARITY,URINE CLEAR (CLEAR)
[2024-09-13 14:49] LABS: INR 1.6 (0.8-1.2); PT - PROTHROMBIN TIME 17.3 secs (9.9-12.6)
[2024-09-13] MEDS: SODIUM CHLORIDE 0.9% 1,000 ML IV STA (14:49)
--- NOTE | 2024-09-13 14:52 | ED Physician Documentation ---
History of Present Illness Stated complaint Stated Complaint: GENERALIZED WEAKNESS Chief complaint Chief Complaint: General History obtained from History obtained from: Patient History of Present Illness Timing: Prior to arrival Additonal information Additional information: Patient is an 84-year-old female presenting to the emergency department with generalized weakness. Patient was seen here yesterday for similar symptoms and blood in her stool. Patient was discharged home after she had no acute causes of bleeding and she was stable and able to walk. Patient are return home did have some diarrhea unsure of any blood in it but when she went to get up she could not ambulate and slowly lowered herself to the ground. She denies hitting her head and recalls the event well. She does live alone in a house and was unable to call for help or get assistance. Patient was then left on the ground all night when her neighbor came to check on her this morning. Patient had EMS called and was brought here to the ED. She denies any pain no headaches no vision changes no nausea or vomiting. She is not eaten since last evening and does appear fatigued.Patient has past medical history of atrial fibrillation on Pradaxa as well as history of pacemaker in place as well as history of dementia. Meds/Allgy Home Medications Ambulatory Orders Medication Instructions Recorded Confirmed pravastatin 20 mg tablet 20 mg PO DAILY 07/12/15 08/27/24 dabigatran etexilate 75 mg capsule 150 mg PO BID 08/31/17 08/27/24 (Pradaxa) metoprolol tartrate 100 mg tablet 150 mg PO BID 08/31/17 08/27/24 amlodipine 2.5 mg tablet mg 08/27/24 metformin 1,000 mg tablet 1,000 mg PO DAILY 08/27/24 08/27/24 ondansetron 4 mg disintegrating 4 mg PO Q8H PRN nausea and 08/27/24 tablet vomiting #14 tabs Allergies Allergies Allergy/AdvReac Type Severity Reaction Status Date / Time Contrast AdvReac Respiratory Uncoded 09/13/24 13:15 PFSH Medical History Medical History (Updated 09/13/24 @ 15:16 by Hortencia Rodriguez PA-C) History of cardiac pacemaker History of atrial fibrillation Social History Social History Smoking Status: Never smoker Do you dip or chew tobacco?: No Do you vape?: No Patient requests smoking cessation consult: No Initiate information on smoking cessation: No Living arrangement: At home Living Condition: Alone Relationship: Home Mobility Equipment: Cane Do you feel safe in your home environment?: Yes Suffered physical, verbal, emotional, or financial abuse?: No History of Abuse: No Frequency: Occasional Are you sexually active?: No POLST Patient has POLST: No POLST Status: Full Code Exam Constitutional normal general appearance HENMT normocephalic and head/scalp atraumatic Eyes PERRL and EOMs intact bilaterally Chest inspection of chest normal Respiratory breath sounds equal bilaterally, normal respiratory effort and clear to ausculta tion bilaterally Cardiovascular normal heart rate noted, regular rhythm noted, no gallop, no rub and no murmur Gastrointestinal abdomen normal to inspection Back/Pelvis spine normal to inspection Extremities normal to inspection No pain on palpation of upper or lower extremities. Skin skin color normal, no rash, no lesions and no ecchymosis noted Results Vitals Vitals: Vital Signs - 24 hr 09/13/24 13:08 09/13/24 14:59 Temperature 36.3 C L 36.2 C L Temperature Source Temporal Artery Scan Pulse Rate 65 61 Respiratory Rate 17 18 Blood Pressure 106/65 112/61 O2 Saturation 98 97 O2 Source Room air Room air Pain Intensity 0 Oxygen O2 Source Room air Labs Labs: Laboratory Tests 09/13/24 09/13/24 13:47 14:01 WBC 10.9 H RBC 4.97 Hgb 14.5 Hct 45.0 MCV 90.5 MCH 29.2 MCHC 32.2 RDW 14.1 Plt Count 207 MPV 10.2 Neut # (Auto) 7.8 H Lymph # (Auto) 2.0 [place] # (Auto) 0.7 Eos # (Auto) 0.2 Baso # (Auto) 0.1 Absolute Nucleated RBC 0.00 Nucleated RBC % 0.0 PT 17.3 H INR 1.6 H Sodium 141 Potassium 3.5 Chloride 103 Carbon Dioxide 27 Anion Gap 11.0 BUN 27 H Creatinine 0.9 Estimated GFR (MDRD) 60 L Glucose 94 Calcium 9.2 Magnesium 2.0 Total Bilirubin 1.3 H AST 59 H ALT 13 Alkaline Phosphatase 26 L Total Creatine Kinase 1763 H* Total Protein 6.8 Albumin 3.7 Globulin 3.1 Albumin/Globulin Ratio 1.2 Urine Color DARK YELLOW Urine Clarity CLEAR Urine pH 5.5 Ur Specific [place] >=1.030 H Urine Protein TRACE Urine Glucose (UA) NEGATIVE Urine Ketones 15 H Urine Occult Blood TRACE-INTA Urine Nitrite NEGATIVE Urine Bilirubin MODERATE H Urine Urobilinogen 1 (NORMAL) Ur Leukocyte Esterase NEGATIVE Ur Microscopic Review NOT INDICATED Urine Culture Comments NOT INDICATED PD Medical Decision Making ED course Complexity details: reviewed old records and reviewed results ED course: Patient is a 84-year-old female presenting to the emergency department with generalized weakness after being seen here yesterday she is clear from any sort of GI bleed and able to ambulate was discharged home but when she returned home had episodes of diarrhea and when she tried to get up became weak. Patient was able to lower herself off the toilet but then remained on the ground overnight. Patient was found by her neighbor in the morning. Patient on arrival reports generalized weakness and has not eaten or drink since last night. Discussed with patient's son who does plan to see her tomorrow as he has a flight out from [place]. He plans to bring her back home but until then he is unsure if she is safe for home. Patient's labs here in the emergency department show mild leukocytosis but this is improved from yesterday no worsening anemia she has INR of 1.6 with history of Pradaxa use secondary to atrial fibrillation. Her CMP is stable improved GFR from yesterday and CK is significantly elevated at 1763. Patient started on light fluids here in the ED. No significant electrolyte abnormality she does have 15 ketones in her urine consistent with her dehydration. Will reevaluate patient after fluids but I did discussed with hospitalist and they are agreeable to admit patient to observation status. Patient's son was updated and he is agreeable with the plan and will be here at the hospital tomorrow. patient agreeable with admission at this time. Discharge Plan Discharge Patient Disposition: [facility] DC/Xfer Condition: Good Clinical Impression: Gastroenteritis, Rhabdomyolysis, Elevated CK Prescriptions: No Action pravastatin 20 MG tablet 20 mg PO DAILY metoprolol tartrate 100 MG tablet 150 mg PO BID dabigatran etexilate [Pradaxa] 75 MG capsule 150 mg PO BID amlodipine 2.5 mg tablet metformin 1,000 mg tablet 1,000 mg PO DAILY ondansetron 4 mg tablet,disintegrating 4 mg PO Q8H PRN (Reason: nausea and vomiting) Qty: 14 0RF Print Language: New Zealander Stand Alone Forms: PCP List
--- NOTE | 2024-09-13 15:16 | HISTORY & PHYSICAL EXAMINATION ---
Chief Complaint Chief Complaint Chief Complaint: Weakness History of Present Illness Admitted From Admitted From:: Home History Obtained From Records Reviewed: Yes History obtained from: Patient Exam Limitations: None History of Present Illness HPI Comment/Other: Patient is a 82-year-old female with a history of atrial fibrillation on Pradaxa, dementia who presents after weakness. Patient states she was on the toilet, and she felt too weak to get back up. She denies any lightheadedness, dizziness, palpitations, chest pain. She just said that she could not get up. She denied any focal weaknesses as well. As such, she scooted down off the toilet onto some towels, and scooted over to lie down on the ground beside her bed. Here is where she lay for a while until she called her friend who advised her to call EMS. At this time, she still feels a little weak, although she states it is improved. She has full strength in her arms and her legs. She says that she is cold but that is her only complaint. She has no fevers, no chills, no shortness of breath, no dysuria. In the last few days, she does endorse eating less than usual. She states that she has had less meals. She has had some formed stools, 2-3 a day. She is not sure if she has been drinking enough water. Of note, she was just here yesterday for some blood in her stool. When asked about this, she stated that it was just a few drops when she wiped. She is on Pradaxa, as she was concerned and came in. Her hemoglobin was stable, so she was discharged home to follow-up with her primary care physician. Meds/Allgy Home Medications Ambulatory Orders Medication Instructions Recorded Confirmed pravastatin 20 mg tablet 20 mg PO DAILY 07/12/15 08/27/24 metoprolol tartrate 100 mg tablet 150 mg PO BID 08/31/17 08/27/24 amlodipine 2.5 mg tablet mg 08/27/24 metformin 1,000 mg tablet 1,000 mg PO DAILY 08/27/24 08/27/24 ondansetron 4 mg disintegrating 4 mg PO Q8H PRN nausea and 08/27/24 tablet vomiting #14 tabs dabigatran etexilate 150 mg capsule 150 mg PO BID 09/13/24 09/13/24 Allergies Allergies Allergy/AdvReac Type Severity Reaction Status Date / Time Contrast AdvReac Respiratory Uncoded 09/13/24 13:15 [facility] Medical History Medical History History of cardiac pacemaker History of atrial fibrillation Social History Social History Smoking Status: Never smoker Do you dip or chew tobacco?: No Do you vape?: No Patient requests smoking cessation consult: No Initiate information on smoking cessation: No Living arrangement: At home Living Condition: Alone Relationship: Home Mobility Equipment: Cane Do you feel safe in your home environment?: Yes Suffered physical, verbal, emotional, or financial abuse?: No History of Abuse: No Frequency: Occasional Are you sexually active?: No POLST Patient has POLST: No POLST Status: Full Code Review of Systems Constitutional Reports: Fatigue, Malaise and Weakness; Denies: Fever, Chills, Diaphoresis, Night sweats or Changes in appetite or eating habits Eyes Denies: Pain, Irritation, Amaurosis, Blurry vision, Floaters or Field loss Ears, nose, mouth, and throat Denies: Ear pain, Ear discharge, Hearing loss, Hearing aids, Tinnitus, Change in hearing, Nasal pain, Neck pain or Throat swelling Cardiovascular Denies: Irregular heart rate, chest pain, palpitations, edema, swelling of feet/ankles, Syncope, lightheadedness, shortness of breath with exertion, shortness of breath when lying down, Decreased exercise tolerance or leg pain with exertion Respiratory Denies: Shortness of breath, Cough, Sputum production, Change in phlegm color or Wheezing Gastrointestinal Denies: Abdominal pain, Nausea, Vomiting, Poor appetite, Bile emesis, Kai blood emesis, Diarrhea, Constipation, Bloating or Belching Genitourinary Denies: Painful urination, Urinary frequency, Urinary urgency, Urinary incontinence or Blood in urine Musculoskeletal Reports: Muscle weakness; Denies: Back pain, Neck pain, Extremity pain, Extremity swelling or Gout Integumentary/Breast Denies: Rash, Itching, Dryness, Redness, Skin pain or Skin tenderness Neurological Reports: General weakness; Denies: Headache, Focal weakness, Weakness in extremities or Numbness in extremities Psychiatric Reports: Memory loss; Denies: Depression, Anxiety or Mood swings Endocrine Reports: Fatigue; Denies: Excessive urination, Excessive thirst or Polyphagia Hematologic/Lymphatic Denies: Anemia, Easy bruising or Petechiae Allergic/Immunologic Denies: Hives, Throat swelling, Tongue swelling or Wheezing Prior Level of Functionality: Lives alone. Exam Constitutional normal general appearance, no apparent distress and average body habitus HENMT normocephalic, head/scalp atraumatic and hearing grossly abnormal (decreased hearing bilaterally; forgot hearing aids at home) Eyes PERRL, EOMs intact bilaterally and normal visual syed by confrontation Neck/C-Spine trachea midline and cervical spine nontender Chest inspection of chest normal and palpation of chest normal Respiratory breath sounds equal bilaterally, normal respiratory effort, clear to auscultation bilaterally, no wheezes, no rales and no retractions Cardiovascular normal heart rate noted, rhythm abnormal (irregular), no gallop, no rub and no murmur Gastrointestinal abdomen normal to inspection, abdomen soft to palpation, nondistended, normoactive bowel sounds, no hepatosplenomegaly and no masses Genitourinary no CVA tenderness and bladder normal to palpation Extremities normal to inspection, no tenderness and full ROM Neurology no movement abnormality noted, no focal motor deficit noted, no sensory deficits noted, gait normal, speech normal and coordination normal Psychiatry mental status grossly normal, oriented x3, thought process normal, cooperative and affect normal Skin skin color normal, no rash, no lesions and no ecchymosis noted Conclusion/Plan Problem List (1) Rhabdomyolysis: Plan: Patient spent the night on the ground she was too weak to get up. CPK elevated at 1763. Creatinine is still at her baseline of 0.9. Continue IV fluid hydration throughout the night. Recheck CPK in the morning. Qualifiers: Rhabdomyolysis type: non-traumatic Qualified Code(s): M62.82 - Rhabdomyolysis (2) Elevated CK: Plan: Patient spent the night on the ground she was too weak to get up. CPK elevated at 1763. Creatinine is still at her baseline of 0.9. Continue IV fluid hydration throughout the night. Recheck CPK in the morning. (3) Generalized weakness: Plan: Patient with generalized weakness. Decreased p.o. intake, few episodes of diarrhea over the last few days. Hemoglobin is stable. Only had 1 episode of rectal bleeding when wiping. No focal deficits noted. Does not sound like a syncopal or presyncopal eventspatient had no feelings of lightheadedness, palpitations, etc. CT head ordered, pending. Continue IV hydration. Son will be here tomorrow to assist patient at home. (4) Navdeep-tachy syndrome: Plan: Continue patient's home medications including Pradaxa. Pacemaker in place. EKG ordered, pending. (5) CKD (chronic kidney disease): Plan: Creatinine around baseline, continue to monitor. Qualifiers: Chronic kidney disease stage: stage 2 (GFR 60-89) Qualified Code(s): N 18.2 - Chronic kidney disease, stage 2 (mild) (6) Hyperlipidemia: Plan: Continue statin. Qualifiers: Hyperlipidemia type: unspecified Qualified Code(s): E78.5 - Hyperlipidemia, unspecified (7) Hypertension: Plan: Hold amlodipine. Blood pressure borderline at this time. Qualifiers: Hypertension type: unspecified Qualified Code(s): I10 - Essential (primary) hypertension Lab Results Lab results reviewed: Yes 09/13/24 13:47 09/13/24 13:47 Diagnostic Imaging Results Diagnostic Imaging Results: positive Final report reviewed Core Measures Anticipated LOS I expect patient to be DC'd or transferred within 96 hours.: Yes DVT/VTE - Prophylaxis VTE/DVT Device ordered at admit?: Yes VTE/DVT Prophylaxis med ordered at admit?: Yes Stroke - Rehab Assessment Rehab services assessment to be ordered?: No AMI - Statin at Admit Aspirin Prescribed on Admit: No Not Ordered - Medical Reason: Not indicated
[2024-09-13] MEDS ORDERED: ONDANSETRON ODT 4 MG TABLET TL PRN (16:12)
[2024-09-13] MEDS ORDERED: SODIUM CHLORIDE FLUSH 0.9% 10 ML SYRINGE IVP PRN (16:12)
--- NOTE | 2024-09-13 16:25 | CT Report ---
PROCEDURE: CT Head WO INDICATIONS: weakness TECHNIQUE: Noncontrast 4.5 mm thick angled axial sections acquired from the foramen magnum to the vertex. For r adiation dose reduction, the following was used: automated exposure control, adjustment of mA and/or kV according to patient size. COMPARISON: 08/01/2023, 07/05/2021 FINDINGS: Image quality: Excellent. CSF spaces: Basal cisterns are patent. No extra-axial fluid collections. Ventricles are normal in size and shape. Brain: No midline shift. No intracranial masses or hemorrhage. Solis-white matter interface is norm al. Skull and face: Calvarium and visualized facial bones are intact, without suspicious lesions. Sinuses: Visualized sinuses and mastoids are clear. IMPRESSION: Normal noncontrast head CT for age, similar to prior. If there is strong clinical concern for a stroke, please consider a dedicated brain MRI for further e valuation (assuming that there is no contraindication to MRI). Reviewed by: Sergio Garcia MD on 09/13/2024 3:24 PM [facility] Approved by: Sergio Garcia MD on 09/13/2024 3:24 PM [facility] Station ID: [id number]
[2024-09-13] MEDS: SODIUM CHLORIDE FLUSH 0.9% 10 ML SYRINGE IVP SCH (16:43)
[2024-09-13] MEDS: APIXABAN 5 MG TABLET PO SCH (20:05)
[2024-09-14 06:26] LABS: HCT - HEMATOCRIT 37.5 % (37.0-47.0); HGB - HEMOGLOBIN 12.1 g/dL (12.0-16.0); MEAN CORPUSCULAR HEMOGLOBIN 28.9 pg (27.0-31.0); MEAN CORPUSCULAR HGB CONC 32.3 g/dL (32.0-36.0); MEAN CORPUSCULAR VOLUME 89.5 fL (81.0-99.0); RED BLOOD COUNT 4.19 10^6/uL (4.20-5.40); RED CELL DISTRIBUTION WIDTH 13.9 % (12.0-15.0); WHITE BLOOD COUNT 7.9 x10^3/uL (4.8-10.8)
[2024-09-14 06:39] LABS: CALCIUM 8.1 mg/dL (8.5-10.3); CREATININE 0.7 mg/dL (0.6-1.3); POTASSIUM 3.4 mmol/L (3.5-4.5)
--- NOTE | 2024-09-14 09:00 | PROVIDER PROGRESS NOTE ---
Subjective Subjective Subjective: This morning, patient is doing okay. She is alert oriented x 3. She is a little paranoid, and thinks that someone is worsening her son and trying to come talk with her in her room. She has no pains. She is feeling stronger, but has not been able to get out of bed yet. The nurse is going to see how she does when she gets out of bed with her cane. Current Medications Current Medications Current Medications: Current Medications Generic Name Dose Route Start Last Admin Trade Name Freq PRN Reason Stop Dose Admin Acetaminophen 650 mg 09/13/24 16:12 Acetaminophen 325 Mg Tablet PO Q4HR PRN Pain 1 to 4, or Fever Apixaban 5 mg 09/13/24 21:00 09/14/24 08:09 Apixaban 5 Mg Tablet PO 5 mg BID MENDEL Administration Sodium Chloride 1,000 mls @ 100 mls/hr 09/13/24 16:12 09/13/24 22:25 Normal Saline 0.9% IV 100 mls/hr .Q10H MENDEL Administration Ondansetron HCl 4 mg 09/13/24 16:12 Ondansetron Odt 4 Mg Tablet TL Q6HR PRN Nausea / Vomiting Sodium Chloride 10 ml 09/13/24 16:12 Sodium Chloride Flush 0.9% 10 Ml Syringe IVP PRN PRN NEEDED PER PROVIDER ORDERS Sodium Chloride 10 ml 09/13/24 17:00 09/14/24 08:09 Sodium Chloride Flush 0.9% 10 Ml Syringe IVP 10 ml 0100,0900,1700 MENDEL Administration Objective Vital Signs/Intake & Output Reviewed Vital Signs: Yes Vital Signs: Vital Signs x48h Temp Pulse Resp BP Pulse Ox 09/14/24 07:46 97.9 F 62 20 110/55 L 94 09/14/24 06:14 97.7 F 62 22 95/50 L 94 Intake & Output: Intake & Output 09/11/24 09/12/24 09/13/24 09/14/24 23:59 23:59 23:59 23:59 Intake Total 2462 / 2462 800 / 800 Output Total 0 / 0 200 / 200 Balance 2462 / 2462 600 / 600 Weight (kg) 81 kg Objective General Appearance: positive No acute distress, Alert and Mild distress Eyes Bilateral: positive Normal inspection, PERRL and EOMI ENT: positive ENT inspection nml, Pharynx nml and No signs of dehydration Neck: positive Nml inspection, Thyroid nml and No JVD Respiratory: positive Chest non-tender, No respiratory distress and Breath sounds nml Cardiovascular: positive Regular rate & rhythm, No murmur and No gallop Abdomen: positive Non-tender, No organomegaly and Nml bowel sounds Back: positive Nml inspection; negative CVA tenderness (R) or CVA tenderness (L) Skin: positive Color nml, No rash, Warm and Dry; negative Cyanosis, Diaphoresis or Skin rash Extremities: positive Non-tender, Full ROM, Nml appearance and No pedal edema Neurologic/Psychiatric: positive Oriented x3 and Other (although oriented x 3, does get confused, has some lapses in memory) Lab Results 09/14/24 06:15 09/14/24 06:15 Other Labs: Lab Results x24hrs 09/14/24 09/13/24 09/13/24 Range/Units 06:15 14:01 13:47 WBC 7.9 10.9 H (4.8-10.8) x10^3/uL RBC 4.19 L 4.97 (4.20-5.40) 10^6/uL Hgb 12.1 14.5 (12.0-16.0) g/dL Hct 37.5 45.0 (37.0-47.0) % MCV 89.5 90.5 (81.0-99.0) fL MCH 28.9 29.2 (27.0-31.0) pg MCHC 32.3 32.2 (32.0-36.0) g/dL RDW 13.9 14.1 (12.0-15.0) % Plt Count 177 207 (130-450) 10^3/uL MPV 10.0 10.2 (7.9-10.8) fL Neut # (Auto) 7.8 H (1.5-6.6) 10^3/uL Lymph # (Auto) 2.0 (1.5-3.5) 10^3/uL [facility] # (Auto) 0.7 (0.0-1.0) 10^3/uL Eos # (Auto) 0.2 (0.0-0.7) 10^3/uL Baso # (Auto) 0.1 (0.0-0.1) 10^3/uL Absolute Nucleated RBC 0.00 x10^3/uL Nucleated RBC % 0.0 /100WBC PT 17.3 H (9.9-12.6) secs INR 1.6 H (0.8-1.2) Sodium 139 141 (135-145) mmol/L Potassium 3.4 L 3.5 (3.5-4.5) mmol/L Chloride 108 103 (101-111) mmol/L Carbon Dioxide 23 27 (21-32) mmol/L Anion Gap 8.0 11.0 (6-13) BUN 20 27 H (6-20) mg/dL Creatinine 0.7 0.9 (0.6-1.3) mg/dL Estimated GFR (MDRD) 80 L 60 L (>89) Glucose 75 94 (74-104) mg/dL Calcium 8.1 L 9.2 (8.5-10.3) mg/dL Magnesium 2.0 (1.7-2.3) mg/dL Total Bilirubin 1.3 H (0.2-1.0) mg/dL AST 59 H (10-42) IU/L ALT 13 (10-60) IU/L Alkaline Phosphatase 26 L (42-121) IU/L Total Creatine Kinase 817 H 1763 H* (30-223) IU/L Total Protein 6.8 (6.4-8.9) g/dL Albumin 3.7 (3.2-5.5) g/dL Globulin 3.1 (2.1-4.2) g/dL Albumin/Globulin Ratio 1.2 (1.0-2.2) Urine Color DARK YELLOW Urine Clarity CLEAR (CLEAR) Urine pH 5.5 (5.0-7.5) PH Ur Specific [place] >=1.030 H (1.002-1.030) Urine Protein TRACE (NEGATIVE) mg/dL Urine Glucose (UA) NEGATIVE (NEGATIVE) mg/dL Urine Ketones 15 H (NEGATIVE) mg/dL Urine Occult Blood TRACE-INTA (NEGATIVE) Urine Nitrite NEGATIVE (NEGATIVE) Urine Bilirubin MODERATE H (NEGATIVE) Urine Urobilinogen 1 (NORMAL) (NORMAL) E.U./dL Ur Leukocyte Esterase NEGATIVE (NEGATIVE) Ur Microscopic Review NOT INDICATED Urine Culture Comments NOT INDICATED Diagnostic Imaging Diagnostic Imaging Results: positive Final report reviewed Assessment/Plan Problem List (1) Rhabdomyolysis: Impression: Patient spent the night on the ground she was too weak to get up. CPK elevated at 1763 on admission, downtrended to 800 today. Creatinine is still at her baseline of 0.9. Continue IV fluid hydration, encourage P.O. intake. Qualifiers: Rhabdomyolysis type: non-traumatic Qualified Code(s): M62.82 - Rhabdomyolysis (2) Elevated CK: Impression: Continue IVF, continue to trend. (3) Generalized weakness: Impression: Patient with generalized weakness. Decreased p.o. intake, few episodes of diarrhea over the last few days. Hemoglobin is stable. Only had 1 episode of rectal bleeding when wiping. No focal deficits noted. Does not sound like a syncopal or presyncopal eventspatient had no feelings of lightheadedness, palpitations, etc. CT head negative for any acute changes. Continue IV hydration. If son will be living with her, and she is able to walk around with nurse and minimal assist, may be okay to go home with home health. If not, will need PT/OT evaluation (on Sunday), for placement. (4) Navdeep-tachy syndrome: Impression: Continue patient's home medications including Pradaxa. Pacemaker in place. EKG with no acute changes. (5) CKD (chronic kidney disease): Impression: Creatinine around baseline, continue to monitor. Qualifiers: Chronic kidney disease stage: stage 2 (GFR 60-89) Qualified Code(s): N 18.2 - Chronic kidney disease, stage 2 (mild) (6) Hyperlipidemia: Impression: Continue statin. Qualifiers: Hyperlipidemia type: unspecified Qualified Code(s): E78.5 - Hyperlipidemia, unspecified (7) Hypertension: Impression: Hold amlodipine. Blood pressure borderline at this time. Qualifiers: Hypertension type: unspecified Qualified Code(s): I10 - Essential (primary) hypertension
--- NOTE | 2024-09-14 10:31 | PHARMACY PROGRESS NOTE ---
Best Possible Medication History Admit Date and Time: 09/13/24 [id number] Home Medications Medication Instructions Recorded Confirmed Type pravastatin 20 mg tablet 20 mg PO DAILY 07/12/15 09/13/24 History metoprolol tartrate 100 mg tablet 150 mg PO BID 08/31/17 09/13/24 History amlodipine 2.5 mg tablet 2.5 mg PO DAILY 08/27/24 09/13/24 History metformin 1,000 mg tablet 1,000 mg PO DAILY 08/27/24 09/14/24 History dabigatran etexilate 150 mg capsule 150 mg PO BID 09/13/24 09/13/24 History Processed by: Pharmacy Medications reviewed in ED?: No Medication History completed: Yes Patient Interview: Completed Secondary Source(s): Pharmacy records and Insurance records [facility] Statement: As the person ultimately responsible for medication therapy, providers are able to order a medication from an existing home medication list in [facility] via the "Reconcile Routine" prior to Confirmation of that medication by shipping support. Such practice is discouraged except when the physician, in their clinical judgment, deems that a medical need exists for a medication without regard to previous use.
--- NOTE | 2024-09-14 13:12 | Discharge Summary ---
"Discharge Summary Admit Date: 09/13/24 Discharge Date: 09/14/24 Discharging Provider: Dr. Shawn Guadalupe Primary Care Provider: Will be moving to [place] with son - will establish care with PCP there Code Status: Attempt Resuscitation Discharge Facility Name: Home with son DIAGNOSES Admission Diagnoses: Rhabdomyolysis Elevated CK Generalized weakness Bradytachy syndrome s/p pacemaker Chronic kidney disease Hyperlipidemia Hypertension Discharge Diagnoses with Status of Each Condition: Rhabdomyolysis, elevated CKresolving. Completed IV fluid resuscitation. Encourage p.o. intake. Patient is eating and drinking well. Encouraged to check creatinine, kidney numbers in about a week. Will relay this to the son. Generalized weaknessable to ambulate with cane. Living with son after discharge, which will be good for her. May need some outpatient physical therapy. Continue to follow-up outpatient. Leukocytosislikely reactive to above, resolved. Navdeep-tachy syndrome s/p pacemakercontinue pacemaker. Patient is on dabigatran in the outpatient setting, continued. Chronic kidney disease versus acute kidney injurypatient's creatinine is around baseline, and even further improved with IV hydration. Continue to monitor closely. Hypertensionadvised to hold amlodipine on discharge. Patient has been borderline low while here. HPI History of Present Illness: Patient is a 82-year-old female with a history of atrial fibrillation on Pradaxa, dementia who presents after weakness. Patient states she was on the toilet, and she felt too weak to get back up. She denies any lightheadedness, dizziness, palpitations, chest pain. She just said that she could not get up. She denied any focal weaknesses as well. As such, she scooted down off the toilet onto some towels, and scooted over to lie down on the ground beside her bed. Here is where she lay for a while until she called her friend who advised her to call EMS. At this time, she still feels a little weak, although she states it is improved. She has full strength in her arms and her legs. She says that she is cold but that is her only complaint. She has no fevers, no chills, no shortness of breath, no dysuria. In the last few days, she does endorse eating less than usual. She states that she has had less meals. She has had some formed stools, 2-3 a day. She is not sure if she has been drinking enough water. Of note, she was just here yesterday for some blood in her stool. When asked about this, she stated that it was just a few drops when she wiped. She is on Pradaxa, as she was concerned and came in. Her hemoglobin was stable, so she was discharged home to follow-up with her primary care physician. CONSULTS | PROCEDURES Consultations: Social work Procedures: CT head HOSPITAL COURSE Hospital Course: Patient is a 84-year-old female with a history of atrial fibrillation on Pradaxa, dementia who presents after weakness. She was on the toilet, and felt too weak to get up. So she slid down, and then crawled towards and scooted towards her bed. Here she laid for a while until she called her friend who advised her to call EMS. Prior to coming to the hospital, she did have a few episodes of diarrhea, and had been eating less at home. Of note, she had come to the emergency room a few days ago for some blood in her stool. Occult testing was done and it was positive. She describes it as just wiping and seeing some blood on the toilet paper. Her hemoglobin has been stable while she has been here. She was advised outpatient to follow-up and complete a colonoscopy. Her son did come from [place], and plans to move her there with him. She should just continue her pravastatin as well as her Pradaxa. Advised to hold her blood pressure medications as her blood pressures have been soft while she has been here. ALLERGIES Allergies Allergy/AdvReac Type Severity Reaction Status Date / Time Contrast AdvReac Respiratory Uncoded 09/13/24 13:15 MEDICATIONS Ambulatory Orders Medication Instructions Recorded Confirmed pravastatin 20 mg tablet 20 mg PO DAILY 07/12/15 09/13/24 dabigatran etexilate 150 mg capsule 150 mg PO BID 09/13/24 09/13/24 PHYSICAL EXAM AT DISCHARGE General Appearance: positive No acute distress and Alert; negative Anxious Eyes Bilateral: positive Normal inspection, PERRL and EOMI ENT: positive ENT inspection nml, Pharynx nml and No signs of dehydration Neck: positive Nml inspection, Thyroid nml, No JVD and Trachea midline Respiratory: positive Chest non-tender, No respiratory distress and Breath sounds nml; negative Wheezes, Rales or Rhonchi Cardiovascular: positive Regular rate & rhythm, No murmur and No gallop; negative Tachycardia or Bradycardia Peripheral Pulses: positive 2+ Abdomen: positive Non-tender, No organomegaly, Nml bowel sounds and No distention; negative Tenderness, Guarding, Rebound, Hepatomegaly, Splenomegaly or Mass Back: positive Nml inspection; negative CVA tenderness (R) or CVA tenderness (L) Skin: positive Color nml, No rash, Warm and Dry Extremities: positive Non-tender, Full ROM, Nml appearance and No pedal edema Neurologic/Psychiatric: positive Oriented x3 and Other (can get confused at times) LABS 09/14/24 06:15 09/14/24 06:15 DIAGNOSTIC IMAGING Diagnostic Imaging Results: Final report reviewed QUALITY (Female Hip Fx Only) Was patient sent home on osteoporosis medication?: No FOLLOW UP Follow Up: Follow up with primary care physician, establish care on discharge. TIME SPENT Time Spent in Discharge (Minutes): 35 Discharge Plan Discharge Patient Disposition: Home, Self Care Condition: Good Prescriptions: Continued pravastatin 20 MG tablet 20 mg PO DAILY dabigatran etexilate 150 mg capsule 150 mg PO BID Discontinued metoprolol tartrate 100 MG tablet 150 mg PO BID amlodipine 2.5 mg tablet 2.5 mg PO DAILY metformin 1,000 mg tablet 1,000 mg PO DAILY Diet: Cardiac Health Concerns: You came in because you were feeling weak. You had some episodes of diarrhea prior to coming in. When you came in, you had some muscle breakdown from lying in an awkward position all night. Sometimes muscle breakdown product can affect your kidneys, and so we wanted to admit you to give you some IV fluids to help improve this. This morning, it is improved. Your kidney numbers look good! While you have been here, your blood pressure has been on the low to normal side. As such, I am advising you to hold your amlodipine. Please continue your metoprolol at a lower dose of 50mg daily. You can continue your dabigatran as well as your statin. I understand that you will be moving to [place] with your son, who will be keeping a closer eye on you. I think this is a great idea. Please continue to change positions slowly i.e. when you go from lying to sitting, take a few minutes before you stand up. Please use your canes to walk at all times. I would also advise you to continue to drink enough water, and eat appropriately. Once you do move, I would advise you to follow-up with a primary care doctor. We are glad you are flailing better, thank you for allowing us to care of you. Care Plan Goals: 1. Continue to work on your strength. 2. Continue to drink enough water and eat enough at home. 3. Hold your amlodipine. 4. Take a lower dose, 50mg, of your metoprolol. 4. Speak with your primary care physician, establish care with a new once you do move. Have them recheck your blood pressure and kidney numbers. Plan of Treatment: 1. Continue to work on your strength. 2. Continue to drink enough water and eat enough at home. 3. Hold your amlodipine. 4. Take a lower dose, 50mg, of your metoprolol. 4. Speak with your primary care physician, establish care with a new once you do move. Have them recheck your blood pressure and kidney numbers. Print Language: Kiswahili Patient Instructions: Rhabdomyolysis, ED Hypotension All Causes Stand Alone Forms: PCP List"
[2024-09-14 14:15] VITALS: BP 105/47; TEMP 98.1; O2SAT 95
[2024-09-14] MEDS: ACETAMINOPHEN 325 MG TABLET PO PRN (14:49)
[2024-09-14] MEDS ORDERED: PRAVASTATIN 10 MG TABLET PO SCH (21:00)
== END 2024-09-14 15:18 | disposition home or self-care (01) ==
LOC: MS2 13:07 → ED 13:07 → MS2 15:44
PROVIDERS: ADMIT Internal Medicine; ATTEND Internal Medicine